=== PATIENT | female | born 1965 | race Caucasian/White ===

== ENCOUNTER 2020-06-01 09:41 | Outpatient (REF) | payer MEDICARE, MEDICAID, SELFPAY ==
[2020-06-01 10:51] LABS: MANUAL DIFF FLAG NO
[2020-06-01 11:00] LABS: Eosinophils Absolute Auto 0.2 X10*3/uL (0.0-0.4); Eosinophils Percent Auto 5.2 % (0-4); Hematocrit 40.1 % (37-47); Hemoglobin 13.8 g/dl (12.0-16.0); Imm Gran Abs Auto 0.01 X10*3/uL (0.00-0.03); Imm Gran Pct Auto 0.3 % (0.0-0.4); Lymphocytes Absolute Auto 1.6 X10*3/uL (1.2-4.9); Lymphocytes Percent Auto 40.6 % (20-40); Mean Corpuscular HGB Conc 34.4 g/dl (31.0-35.0); Mean Corpuscular Hemoglobin 32.2 pg (27.0-33.0); Mean Corpuscular Volume 93.5 fL (80-98); Mean Platelet Volume 9.3 fL (9.4-12.3); Monocytes Absolute Auto 0.5 X10*3/uL (0.1-1.2); Monocytes Percent Auto 11.6 % (2-11); Neutrophils Absolute Auto 1.6 X10*3/uL (2.0-8.3); Neutrophils Percent Auto 41.3 % (45-73); Platelet Count 254 X10*3/uL (160-400); Red Blood Count 4.29 X10*6/uL (4.20-5.50); Red Cell Distribution Width 11.6 % (11.0-16.0); White Blood Count 3.9 X10*3/uL (4.8-10.8)
[2020-06-01 11:37] LABS: Alanine Aminotransferase 39 U/L (0-31); Anion Gap 12 (12-20); Aspartate Amino Transferase 23 U/L (5-31); Bilirubin Total 0.5 mg/dL (0.0-1.0); Blood Urea Nitrogen 17 mg/dL (9-16); Calcium 9.2 mg/dL (8.4-10.2); Carbon Dioxide 27 mmol/L (22-29); Chloride 104 mmol/L (96-108); Estimated Glomerular Filt Rate > 60; Glucose Random 98 mg/dL (60-115); Potassium 4.2 mmol/L (3.3-5.1); Sodium 139 mmol/L (135-145); Total Protein 7.3 g/dL (6.5-8.0)
[2020-06-01 11:38] LABS: Albumin Level 4.3 g/dL (3.5-5.0); Alkaline Phosphatase 80 U/L (39-117); Cholesterol 205 mg/dL; HDL Cholesterol 51 mg/dL; LDL Cholesterol Calculated 133 mg/dl; Triglycerides 108 mg/dL
== END 2020-06-01 09:42 | disposition home or self-care (01) ==
LOC: HO.LAB 09:41
PROVIDERS: PCP Internal Medicine; Visit Provider Internal Medicine
DX: R10.13 Epigastric pain (principal); E03.8 Other specified hypothyroidism; E78.00 Pure hypercholesterolemia, unspecified; H81.12 Benign paroxysmal vertigo, left ear
CPT/HCPCS: 36415; 80053; 80061; 84443; 85025

== ENCOUNTER 2020-08-19 08:16 | Outpatient (REF) | payer MEDICARE, MEDICAID, SELFPAY ==
--- NOTE | ~2020-08-19 | MM_ITS ---
EXAMINATION: MM SCREENING DIGITAL BREAST TOMOSYNTHESIS, BILATERAL CLINICAL INFORMATION: Screening. Asymptomatic. The lifetime risk of breast cancer based on the Tyrer-Cuzick Model is 8%. COMPARISON: Mammography: 10/14/2018, 09/24/2017, 08/07/2016 TECHNIQUE: Digital breast tomosynthesis is performed in both the craniocaudal and mediolateral oblique views along with computer-aided detection (CAD). Synthesized 2D images are generated from the tomosynthesis. FINDINGS: There are scattered areas of fibroglandular density (ACR BI-RADS breast composition Category b). There are no significant masses, abnormal calcifications, or other abnormalities. Background stromal densities are stable. No significant changes. MM/MM tomosynthesis screening BI IMPRESSION: No mammographic evidence of malignancy. ASSESSMENT: BI-RADS 1: Negative RECOMMENDATION: Routine annual mammography screening. This patient's information was entered into a reminder system with a target due date for their next mammogram.
== END 2020-08-19 08:17 | disposition home or self-care (01) ==
LOC: HO.MAMMO 08:16
PROVIDERS: PCP Internal Medicine; Visit Provider Internal Medicine
DX: Z12.31 Encounter for screening mammogram for malignant neoplasm of breast (principal)
CPT/HCPCS: 77063; 77067

== ENCOUNTER 2021-07-03 11:21 | Outpatient (REF) | payer MEDICARE, MEDICAID, SELFPAY ==
[2021-07-03 11:40] LABS: MANUAL DIFF FLAG NO
[2021-07-03 12:01] LABS: Basophils Percent Auto 0.8 % (0-2); Eosinophils Absolute Auto 0.2 X10*3/uL (0.0-0.4); Eosinophils Percent Auto 4.1 % (0-4); Hematocrit 43.2 % (37.0-47.0); Hemoglobin 14.4 g/dl (12.0-16.0); Imm Gran Abs Auto 0.01 X10*3/uL (0.00-0.03); Imm Gran Pct Auto 0.3 % (0.0-0.4); Lymphocytes Absolute Auto 1.6 X10*3/uL (1.2-4.9); Mean Corpuscular HGB Conc 33.3 g/dl (31.0-35.0); Mean Corpuscular Hemoglobin 32.1 pg (27.0-33.0); Mean Corpuscular Volume 96.4 fL (80.0-98.0); Mean Platelet Volume 9.1 fL (9.4-12.3); Monocytes Absolute Auto 0.4 X10*3/uL (0.1-1.2); Monocytes Percent Auto 11.1 % (2-11); Neutrophils Absolute Auto 1.6 x10*3/uL (2.0-8.3); Neutrophils Percent Auto 41.7 % (45-73); Platelet Count 222 X10*3/uL (160-400); Red Blood Count 4.48 X10*6/uL (4.20-5.50); Red Cell Distribution Width 11.9 % (11.0-16.0); White Blood Count 3.9 X10*3/uL (4.8-10.8)
[2021-07-03 12:33] LABS: Alanine Aminotransferase 38 U/L (0-31); Albumin Level 4.4 g/dL (3.5-5.0); Alkaline Phosphatase 82 U/L (39-117); Anion Gap 14 (12-20); Aspartate Amino Transferase 25 U/L (5-31); Bilirubin Total 0.7 mg/dL (0.0-1.0); Blood Urea Nitrogen 16 mg/dL (9-16); Calcium 10.4 mg/dL (8.4-10.2); Carbon Dioxide 25 mmol/L (22-29); Chloride 104 mmol/L (96-108); Cholesterol 214 mg/dL; Estimated Glomerular Filt Rate 56; Glucose Random 100 mg/dL (60-115); HDL Cholesterol 55 mg/dL; LDL Cholesterol Calculated 139 mg/dl; Potassium 4.5 mmol/L (3.3-5.1); Sodium 138 mmol/L (135-145); Total Protein 7.7 g/dL (6.5-8.0); Triglycerides 104 mg/dL
[2021-07-03 12:55] LABS: Thyroid Stimulating Hormone 2.44 uIU/mL (0.32-4.0)
== END 2021-07-03 11:22 | disposition home or self-care (01) ==
LOC: HO.LAB 11:21
PROVIDERS: PCP Internal Medicine; Visit Provider Internal Medicine
DX: E78.00 Pure hypercholesterolemia, unspecified (principal); J45.909 Unspecified asthma, uncomplicated; R00.2 Palpitations; R74.01 Elevation of levels of liver transaminase levels
CPT/HCPCS: 36415; 80053; 80061; 84443; 85025

== ENCOUNTER 2021-07-25 12:46 | Outpatient (REF) | payer MEDICARE, SELFPAY ==
[2021-07-25 13:51] LABS: Calcium 9.6 mg/dL (8.4-10.2); Phosphorus 3.7 mg/dL (2.7-4.5)
[2021-07-25 14:13] LABS: Vitamin D 25-OH Total 44.3 ng/mL (>30)
[2021-07-25 14:36] LABS: Folate 15.4 ng/mL (> or = 4.0); Vitamin B12 759 pg/mL (200-900)
[2021-07-26 05:03] LABS: HBc Num1 0.07 S/CO (0.00-0.79); Hepatitis B Core Antibody Nonreactive (Nonreactive); ~Hepatitis B Surface Antibody NONREACTIVE (Nonreactive)
[2021-07-26 05:11] LABS: Hepatitis B Surface Antigen Negative (Negative); ~Hepatitis C Antibody Nonreactive (Nonreactive)
[2021-07-26 11:06] LABS: Calcium (PTHI) 9.3 mg/dL (8.6-10.4); PTHI 45 pg/mL (16-77)
[2021-07-27 07:37] LABS: HBsAGNum1 0.16 S/CO (0.00-0.99); ~HepC Num1 0.75 S/CO (0.00-0.79)
[2021-07-27 07:44] LABS: ~Hepatitis A Antibody IgM Nonreactive (Nonreactive)
== END 2021-07-25 12:47 | disposition home or self-care (01) ==
LOC: HO.LAB 12:46
PROVIDERS: PCP Internal Medicine; Visit Provider Internal Medicine
DX: E78.00 Pure hypercholesterolemia, unspecified (principal); E83.52 Hypercalcemia; G62.9 Polyneuropathy, unspecified; R74.01 Elevation of levels of liver transaminase levels
CPT/HCPCS: 36415; 82306; 82310; 82607; 82746; 83970; 84100; 86704; 86706; 86709; 86803; 87340

== ENCOUNTER 2022-03-05 14:18 | Outpatient (REF) | payer MEDICARE, SELFPAY ==
--- NOTE | ~2022-03-05 | MR_ITS ---
EXAMINATION: MR LUMBAR SPINE WITHOUT CONTRAST CLINICAL INFORMATION: Right lower extremity radiculopathy. COMPARISON: None TECHNIQUE: Multiplanar, multisequence imaging was obtained. FINDINGS: VERTEBRAL BODIES AND PARASPINAL STRUCTURES: There are chronic fatty marrow degenerative endplate changes and moderate disc space narrowing with mild retrosubluxation at the L5-S1 level. Mild anterolisthesis noted at the L4-L5 level with edema in the right pedicles and bilateral posterior elements, presumably reactive in etiology. Endplate Schmorl's nodes and [id number]-[id number] disc space narrowing evident at the L1-L2 level. No compression fractures are seen. The paraspinal soft tissues appear normal. The imaged bony pelvis is unremarkable. CONUS MEDULLARIS AND CAUDA EQUINE: The distal cord, conus tip, and cauda equina nerve roots are normal. SPINAL LEVELS: L1-L2: Retrosubluxation and central disc protrusion with an underlying annular tear distorting the ventral thecal sac. Mild central canal stenosis. Patent foramina. L2-L3: Mild facet arthropathy. No disc pathology, central canal stenosis, or foraminal narrowing. L3-L4: Mild loss of disc height and diffuse disc bulge with [id number] facet arthrosis. No central canal stenosis. Mild left foraminal narrowing. Right foraminal disc protrusion compresses the exiting right L3 nerve root with moderate to severe encroachment. L4-L5: Mild anterolisthesis and severe facet arthropathy. No central canal stenosis. Moderate left foraminal narrowing. L5-S1: Retrosubluxation and severe disc space narrowing with a diffuse disc bulge and facet arthropathy. No central canal stenosis. Right subarticular zone focal disc protrusion impresses upon the right S1 nerve root. Osseous spurring results in severe bilateral foraminal encroachment and distortion of both L5 nerve roots. MR/MR lumbar spine wo con IMPRESSION: 1. Right foraminal disc protrusion at the L3-L4 level compressing the right L3 nerve root with [id number]-[id number] encroachment. 2. Mild anterolisthesis and severe facet arthropathy at the L4-L5 level with moderate left foraminal narrowing. Reactive edema in the posterior elements and pedicles, more so on the right side. 3. Severe degenerative disc disease and retrosubluxation at the L5-S1 level with a focal right subarticular zone disc protrusion impressing upon the right S1 nerve root. Severe bilateral foraminal narrowing with distortion of both L5 nerve roots.
== END 2022-03-05 14:19 | disposition home or self-care (01) ==
LOC: HO.MRI 14:18
PROVIDERS: Visit Provider Internal Medicine
DX: M54.16 Radiculopathy, lumbar region (principal)
CPT/HCPCS: 72148

== ENCOUNTER 2022-10-17 10:24 | Emergency (ER) | payer MEDICARE, SELFPAY ==
[2022-10-17 10:38] VITALS: BP 132/70; BP 142/88; PULSE 66; PULSE 78; RESP 18; TEMP 36.7; O2SAT 97; O2SAT 99; BMI 26.4
--- NOTE | 2022-10-17 10:39 | ED.CHESTPAIN ---
HPI - Chest Pain General Chief Complaint: Chest Pain Stated Complaint: chest and R arm pain from urgent care History of Present Illness HPI narrative: Patient is 57 years old presents today with having chest pain. The chest pain is over the mid chest area. There is some pain in the right arm as well. It goes to the neck. Patient denies any diaphoresis. Symptom has been ongoing since she woke up at 07:30. Not associated with shortness of breath. No diaphoresis. Patient from home. No history of diabetes, hypertension, mi. no history of recreational drug use. No smoking no family history of coronary artery disease. Not made worse with any specific movements. Related Data Allergies Allergy/AdvReac Type Severity Reaction Status Date / Time nut - unspecified [nut] Allergy Mild RASH/ITCHIN Verified 10/17/22 10:37 G FRUIT Allergy Mild RASH/ITCH/THROAT Uncoded 12/30/19 15:37 CLOSES apples, pears, bryson, Allergy Unknown Itching Uncoded 10/17/22 10:37 peanut, Review of Systems Review of Systems: Is positive right-sided chest pain Yes all other systems are reviewed and are negative [facility] Past Medical History Attestation statement: The following information was validated with the patient. Social History Social History Alcohol intake: current Alcohol intake frequency: holidays/special occasions only Smoked in Last 30 Days: No Use of substances other than those prescribed or required for medical reasons: No Advance Directives: No Advance Directives Information Provided: Yes Patient : No Physical Exam Vital Signs: Vital Signs: Last Vital Signs Temp 98.0 F 10/17/22 13:22 Pulse 70 10/17/22 13:22 Resp 16 10/17/22 13:22 BP 130/81 10/17/22 13:22 Pulse Ox 94 10/17/22 13:22 O2 Del Method Room Air 10/17/22 13:22 BMI result Body Mass Index 26.4 Appearance: Alert. Oriented X3. No acute distress. Eyes: Pupils equal, round and reactive to light. ENT: Pharynx normal. Neck: Normal inspection. Neck supple. No lymph nodes noted. No crepitus CVS: Normal heart rate and rhythm. Pulses normal. Normal S1 and S2 Respiratory: No respiratory distress. Breath sounds normal. No Wheezing. No rales Abdomen: Soft and nontender. No rigidity. No distention. good BS x4 Skin: Skin warm and dry. Normal skin color. Normal skin turgor. Extremities: No lower extremity edema. Neurovascular intact to all extremities. No Lacerations. No Rash Neuro: Oriented X 3. No motor deficit. No sensory deficit. Moving all extermities. No slurred speech Medical Decision Making Medical Decision Making [facility] Narrative: Patient's chest pain atypical. D-dimer was negative. In the setting of low risk unlikely to be PE. Patient's chest x-ray showed no evidence of pneumonia pneumothorax. Patient complaining of some headache on the side. Sed rate are negative. No evidence for temporal arteritis. My interpretation of patient's EKG showed a sinus rhythm heart rate is 70 RI QRS QT within normal limits is no acute ST segment elevation. History not consistent. Negative EKG negative troponin x2 set makes ACS unlikely. Will still have patient follow-up on an outpatient basis. Differential Diagnosis Differential Diagnoses: The differential diagnosis associated with the presentation includes CAD, pneumonia, pneumothorax, temporal arteritis, migraine Lab Data [facility] Lab Attestation statement: I reviewed the patient's lab results. 10/17/22 11:00 10/17/22 11:00 Labs: Lab Results 10/17/22 10/17/22 10/17/22 Range/Units 11:00 11:00 11:00 WBC 4.4 L (4.8-10.8) X10*3/uL RBC 4.39 (4.20-5.50) X10*6/uL Hgb 14.2 (12.0-16.0) g/dl Hct 41.3 (37.0-47.0) % MCV 94.1 (80.0-98.0) fL MCH 32.3 (27.0-33.0) pg MCHC 34.4 (31.0-35.0) g/dl RDW 12.0 (11.0-16.0) % Plt Count 219 (160-400) X10*3/uL MPV 8.7 L (9.4-12.3) fL Immature Gran % (Auto) 0.2 (0.0-0.4) % Neut % (Auto) 47.6 (45-73) % Lymph % (Auto) 37.5 (20-40) % Mellette % (Auto) 10.5 (2-11) % Eos % (Auto) 3.7 (0-4) % Baso % (Auto) 0.5 (0-2) % Lymph # (Auto) 1.6 (1.2-4.9) X10*3/uL Mellette # (Auto) 0.5 (0.1-1.2) X10*3/uL Eos # (Auto) 0.2 (0.0-0.4) X10*3/uL Baso # (Auto) 0.0 (0.0-0.2) X10*3/uL Abs Immat Gran (auto) 0.01 (0.00-0.03) X10*3/uL Absolute Neuts (auto) 2.1 (2.0-8.3) x10*3/uL Absolute Nucleated RBC 0.000 (0.0-0.012) X10*3/uL Nucleated RBC % (auto) 0.0 (0.0-0.2) /100WBC ESR 8 (0-20) MM/HR D-Dimer High Sensitivty < 150 NG/ML Sodium (135-145) mmol/L Potassium (3.3-5.1) mmol/L Chloride (96-108) mmol/L Carbon Dioxide (22-29) mmol/L Anion Gap (12-20) BUN (9-16) mg/dL Creatinine (0.5-1.4) mg/dL Estim Creat Clear Calc Estimated GFR Random Glucose (60-115) mg/dL Calcium (8.4-10.2) mg/dL Total Bilirubin (0.0-1.0) mg/dL Direct Bilirubin (0.0-0.5) mg/dL AST (5-31) U/L ALT (0-31) U/L Alkaline Phosphatase (39-117) U/L Troponin I High Sens (<3.5-17.0) ng/L C-Reactive Protein (< or = 0.50) mg/dL Total Protein (6.5-8.0) g/dL Albumin (3.5-5.0) g/dL Lipase (8-78) U/L 10/17/22 10/17/22 10/17/22 Range/Units 11:00 11:00 13:08 WBC (4.8-10.8) X10*3/uL RBC (4.20-5.50) X10*6/uL Hgb (12.0-16.0) g/dl Hct (37.0-47.0) % MCV (80.0-98.0) fL MCH (27.0-33.0) pg MCHC (31.0-35.0) g/dl RDW (11.0-16.0) % Plt Count (160-400) X10*3/uL MPV (9.4-12.3) fL Immature Gran % (Auto) (0.0-0.4) % Neut % (Auto) (45-73) % Lymph % (Auto) (20-40) % Mellette % (Auto) (2-11) % Eos % (Auto) (0-4) % Baso % (Auto) (0-2) % Lymph # (Auto) (1.2-4.9) X10*3/uL Mellette # (Auto) (0.1-1.2) X10*3/uL Eos # (Auto) (0.0-0.4) X10*3/uL Baso # (Auto) (0.0-0.2) X10*3/uL Abs Immat Gran (auto) (0.00-0.03) X10*3/uL Absolute Neuts (auto) (2.0-8.3) x10*3/uL Absolute Nucleated RBC (0.0-0.012) X10*3/uL Nucleated RBC % (auto) (0.0-0.2) /100WBC ESR (0-20) MM/HR D-Dimer High Sensitivty NG/ML Sodium 138 (135-145) mmol/L Potassium 4.7 (3.3-5.1) mmol/L Chloride 106 (96-108) mmol/L Carbon Dioxide 25 (22-29) mmol/L Anion Gap 12 (12-20) BUN 18 H (9-16) mg/dL Creatinine 0.80 (0.5-1.4) mg/dL Estim Creat Clear Calc 62.6 Estimated GFR > 60 Random Glucose 106 (60-115) mg/dL Calcium 9.6 (8.4-10.2) mg/dL Total Bilirubin 0.5 (0.0-1.0) mg/dL Direct Bilirubin 0.1 (0.0-0.5) mg/dL AST 25 (5-31) U/L ALT 32 H (0-31) U/L Alkaline Phosphatase 79 (39-117) U/L Troponin I High Sens < 2.7 < 2.7 (<3.5-17.0) ng/L C-Reactive Protein 0.15 (< or = 0.50) mg/dL Total Protein 7.7 (6.5-8.0) g/dL Albumin 4.1 (3.5-5.0) g/dL Lipase 21 (8-78) U/L Independent Interpretation I performed an independent interpretation of an: EKG and Plain X-Ray Interpretation: Interpretation of patient's EKG showed a sinus rhythm heart rate is 70 RI QRS QT within normal limits is no acute ST noted Chest x-ray was negative Discharge Plan Discharge Clinical Impression: Chest pain Patient Disposition: Home, Self-Care Instructions: Chest Pain (DC) Referrals: Julieth Blanco MD [Primary Care Provider] - 10/21/22
--- NOTE | 2022-10-17 10:52 | PC.NURSE ---
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
[2022-10-17 13:22] VITALS: BP 130/81; PULSE 70; RESP 16; TEMP 36.7; O2SAT 94
--- NOTE | 2022-10-17 13:25 | PC.NURSE ---
a&ox3, vss, nsr on the laboratory monitor, pt states no change in pain level - still stating that the level is a 6/10, repeat troponin level sent to the lab by tech awaiting results, pending discharge based on results, call pompa placed within reach, will continue to monitor.
[2022-10-17 16:02] VITALS: BP 132/72; PULSE 74; RESP 14; O2SAT 98
== END 2022-10-17 16:13 | disposition home or self-care (01) ==
PROVIDERS: Emergency Provider Emergency Medicine Emergency Medical Services; PCP Internal Medicine
DX: R07.9 Chest pain, unspecified (principal)
CPT/HCPCS: 36415; 71045; 80048; 80076; 83690; 84484; 85025; 85379; 85652; 86140; 93005; 99283; 99285

== ENCOUNTER 2023-02-03 11:38 | Outpatient (REF) | payer MEDICARE, SELFPAY ==
[2023-02-03 11:46] LABS: MANUAL DIFF FLAG NO
[2023-02-03 12:11] LABS: Basophils Percent Auto 0.9 % (0-2); Eosinophils Absolute Auto 0.2 X10*3/uL (0.0-0.4); Hematocrit 41.3 % (37.0-47.0); Hemoglobin 14.1 g/dl (12.0-16.0); Imm Gran Abs Auto 0.01 X10*3/uL (0.00-0.03); Imm Gran Pct Auto 0.2 % (0.0-0.4); Lymphocytes Absolute Auto 1.9 X10*3/uL (1.2-4.9); Lymphocytes Percent Auto 44.4 % (20-40); Mean Corpuscular HGB Conc 34.1 g/dl (31.0-35.0); Mean Corpuscular Hemoglobin 32.8 pg (27.0-33.0); Monocytes Absolute Auto 0.4 X10*3/uL (0.1-1.2); Monocytes Percent Auto 9.6 % (2-11); Neutrophils Absolute Auto 1.8 x10*3/uL (2.0-8.3); Neutrophils Percent Auto 40.9 % (45-73); Platelet Count 235 X10*3/uL (160-400); Red Cell Distribution Width 11.8 % (11.0-16.0); White Blood Count 4.3 X10*3/uL (4.8-10.8)
[2023-02-03 12:40] LABS: Alanine Aminotransferase 25 U/L (0-31); Albumin Level 4.3 g/dL (3.5-5.0); Alkaline Phosphatase 96 U/L (39-117); Anion Gap 11 (12-20); Aspartate Amino Transferase 24 U/L (5-31); Bilirubin Total 0.4 mg/dL (0.0-1.0); Blood Urea Nitrogen 14 mg/dL (9-16); Calcium 10.1 mg/dL (8.4-10.2); Carbon Dioxide 28 mmol/L (22-29); Chloride 106 mmol/L (96-108); Cholesterol 218 mg/dL (<200); Estimated Glomerular Filt Rate > 60; Glucose Random 95 mg/dL (60-115); HDL Cholesterol 68 mg/dL (>40); LDL Cholesterol Calculated 124 mg/dL (<100); Magnesium 1.9 mg/dL (1.6-2.6); Sodium 141 mmol/L (135-145); Total Protein 7.9 g/dL (6.5-8.0); Triglycerides 132 mg/dL (<150)
== END 2023-02-03 11:39 | disposition home or self-care (01) ==
LOC: HO.LAB 11:38
PROVIDERS: PCP Internal Medicine; Visit Provider Internal Medicine
DX: Z00.00 Encounter for general adult medical examination without abnormal findings (principal); I10 Essential (primary) hypertension; J30.2 Other seasonal allergic rhinitis
CPT/HCPCS: 36415; 80053; 80061; 83735; 85025

== ENCOUNTER 2023-10-17 10:20 | Outpatient (AMB) | payer MEDICARE, SELFPAY ==
[2023-10-17 10:33] VITALS: BP 130/72; PULSE 76; TEMP 36.3; O2SAT 97; BMI 26.6
--- NOTE | 2023-10-17 10:33 | AM.OFFWIN_ITS ---
Intake Vital Signs 10/17/23 10:33 Height 5 ft Weight 136 lb 4 oz BMI 26.6 BP 130/72 Blood Pressure Location Rt brachial Position Sitting Pulse 76 Pulse Source Pulse Oximeter Temp 97.3 F Temp Source Temporal Artery Scan Pulse Oximetry (%) 97 Oxygen Delivery Method Room Air Intake Visit Reasons: EP lips/legs are numb/body feeling paralyzed Intake Note: pt is here for lips and legs feeling numb and heavy to walk, patient stated she had a jaciel horse on her leg and ever since then it feels off Patient Tobacco Use Status: Never used Tobacco Allergies nut - unspecified [nut] Allergy (Mild, Verified 10/17/23 10:35) RASH/ITCHING FRUIT Allergy (Mild, Uncoded 12/30/19 15:37) RASH/ITCH/THROAT CLOSES apples, pears, bryson, peanut, Allergy (Unknown, Uncoded 10/17/22 10:37) Itching Do you need a note to return to daycare/school/sports/work: No HPI EP lips/legs are numb/body feeling paralyzed HPI Details This is a 58-year-old female patient who presents to the walk-in today with concern for muscle cramping and numbness/tingling sensation. She states that on Friday, 2 days ago, she developed tingling and numbness around her mouth, in addition to severe cramping in her lower legs, lower arms, and hands. She felt the spasms were so severe, she had difficulty walking. She states that these ultimately resolved about an hour later, however she continues to have soreness in affected areas. 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 She reports mild headache yesterday. She spent yesterday resting at home and does feel somewhat improved. She denies any fever, chills, shortness of breath, chest pain, or recent illnesses. Has been eating and drinking well. No GI symptoms. She has been diagnosed with restless leg syndrome previously and takes Gabape ntin and Magnesium for this. She is travelling outside the country next week and wanted to be evaluated prior to leaving. [facility] Social History Alcohol intake: current Alcohol intake frequency: holidays/special occasions only Patient Tobacco Use Status: Never used Tobacco Review of Systems Const All systems reviewed & are unremarkable except as noted in HPI and below Physical Exam Vital Signs: Last Vital Signs Temp 97.3 F 10/17/23 10:33 Pulse 76 10/17/23 10:33 BP 130/72 10/17/23 10:33 Pulse Ox 97 10/17/23 10:33 Oxygen Delivery Method Room Air 10/17/23 10:33 BMI result Body Mass Index 26.6 Const General: cooperative, healthy appearing, comfortable and no acute distress Orientation/consciousness: patient oriented x3 HEENT Head: Yes normal to inspection and Yes normocephalic Ears: hearing grossly normal bilaterally General nose exam: Normal external nose present Throat: Yes posterior oropharynx normal Eyes Pupils: Equal, round and reactive pupils present EOM: EOMs intact bilaterally Direct Ophthalmoscopy: normal light reflex and no photophobia Neck Neck: Yes no lymphadenopathy Resp Effort & Inspection: normal respiratory effort Auscultation: clear to auscultation bilaterally Cardio Jugular venous distension: no JVD Palpation: normal PMI Rate: regular rate Rhythm: regular rhythm Skin General skin exam: no rashes or lesions noted Neuro General: patient oriented x3, gait normal (mildly antalgic, sore lower extremities), tone normal, moves all extremities, no focal motor deficits and deep tendon reflexes 2+ bilaterally Cranial nerves: Yes Equal, round and reactive pupils present, Yes Normal accommodation reflex present, Yes Bilaterally intact EOM present, Yes Normal facial strength present and Yes Midline tongue present Cognition (Neuro): normal cognition Motor exam (neuro): 5/5 motor strength present throughout, Pronator motor function not present and no tremor noted Extrem Other: normal strength testing bilateral upper and lower extremities, 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 Patient has some soreness of LE musculature to palpation without any swelling, redness, warmth, or spasms noted. Normal peripheral pulses and cap refill. General: Yes capillary refill normal and Yes no clubbing, cyanosis or edema Psych Appearance: grossly normal Mental Status: mental status grossly normal Speech and movement: Normal speech and movement present Assessment & Plan Assessment & Plan (1) Muscle spasm of both lower legs: Code(s): M62.838 - Other muscle spasm Plan: Patient had episode of paresthesias in addition to muscle cramping/spasming. She was working outside and it is possible she was dehydrated and had some electrolyte imbalance. We discussed the limitations of workup from a walk-in clinic standpoint, however she is certain she does not wish to go to the ED for evaluation. Her neuro assessment is normal, VS are normal, and she does not seem to have any muscle cramping or paresthesias at this time, however she still has muscle soreness. I will obtain some labs CBC, BMP, and Mag level today and f/u with patient once these are available to review. She will also f/u with her PCP within the next week. We discussed that if a similar event/symptoms occur, she should go to the ED for evaluation. We discussed adequate hydration, healthy food/vitamin intake. She verbalizes understanding and agrees to plan. Orders: Orders Complete Blood Count Auto Diff Today M62.838 - Other muscle spasm Basic Metabolic Panel Today M62.838 - Other muscle spasm Magnesium Today M62.838 - Other muscle spasm Coding Level of Care Code Est Pt Level 4 (98455) Diagnoses Muscle spasm of both lower legs M62.838
== END 2023-10-17 11:44 | disposition home or self-care (01) ==
PROVIDERS: PCP Internal Medicine; Visit Provider Nurse Practitioner Family
DX: M62.838 Other muscle spasm (principal)
CPT/HCPCS: 99214

== ENCOUNTER 2023-10-17 11:27 | Outpatient (REF) | payer MEDICARE, SELFPAY ==
[2023-10-17 13:19] LABS: MANUAL DIFF FLAG NO
[2023-10-17 13:39] LABS: Anion Gap 13 (12-20); Blood Urea Nitrogen 27 mg/dL (9-16); Calcium 10.3 mg/dL (8.4-10.2); Carbon Dioxide 24 mmol/L (22-29); Chloride 106 mmol/L (96-108); Estimated Glomerular Filt Rate > 60; Glucose Random 99 mg/dL (60-115); Magnesium 2.3 mg/dL (1.6-2.6); Potassium 4.3 mmol/L (3.3-5.1); Sodium 139 mmol/L (135-145)
[2023-10-17 13:46] LABS: Basophils Percent Auto 0.6 % (0-2); Eosinophils Absolute Auto 0.2 X10*3/uL (0.0-0.4); Eosinophils Percent Auto 3.3 % (0-4); Hematocrit 43.1 % (37.0-47.0); Imm Gran Abs Auto 0.01 X10*3/uL (0.00-0.03); Imm Gran Pct Auto 0.2 % (0.0-0.4); Lymphocytes Absolute Auto 1.7 X10*3/uL (1.2-4.9); Lymphocytes Percent Auto 35.5 % (20-40); Mean Corpuscular HGB Conc 34.8 g/dl (31.0-35.0); Mean Corpuscular Volume 94.9 fL (80.0-98.0); Mean Platelet Volume 9.4 fL (9.4-12.3); Monocytes Absolute Auto 0.6 X10*3/uL (0.1-1.2); Monocytes Percent Auto 11.9 % (2-11); Neutrophils Absolute Auto 2.3 x10*3/uL (2.0-8.3); Neutrophils Percent Auto 48.5 % (45-73); Platelet Count 257 X10*3/uL (160-400); Red Blood Count 4.54 X10*6/uL (4.20-5.50); Red Cell Distribution Width 12.2 % (11.0-16.0); White Blood Count 4.8 X10*3/uL (4.8-10.8)
== END 2023-10-17 11:28 | disposition home or self-care (01) ==
LOC: HO.HMGCLDS 11:27
PROVIDERS: PCP Internal Medicine; Visit Provider Nurse Practitioner Family
DX: M62.838 Other muscle spasm (principal); Z20.2 Contact with and (suspected) exposure to infections with a predominantly sexual mode of transmission
CPT/HCPCS: 36415; 80048; 83735; 85025

== ENCOUNTER 2024-03-23 05:41 | Outpatient (REF) | payer MEDICARE, SELFPAY | END 2024-03-23 05:42 | disposition home or self-care (01) | LOC: HO.NEURO 05:41 | PROVIDERS: PCP Internal Medicine; Visit Provider Internal Medicine | DX: Z13.89 Encounter for screening for other disorder (principal) ==

== ENCOUNTER 2024-05-28 12:49 | Outpatient (REF) | payer MEDICARE, SELFPAY ==
--- NOTE | 2024-05-28 | EMG_ITS ---
Chief complaint: History of bilateral carpal tunnel surgery more than 10 years ago. Since surgery, always had left 3rd digit numbness. Now having right wrist pain and left palm pain but denies numbness. Reason for referral: Evaluate for Carpal Tunnel Syndrome Referred by: Dr. Blanco Procedure done: Bilateral upper extremities NCS/EMG Precautions and/or limitations: None The limb temperature was monitored continuously and remained between 32-36 degrees C during the performance of the NCS. Nerve Conduction Studies Anti Sensory Summary Table ?Stim Site NR Onset (ms) Norm Onset (ms) Peak (ms) Norm Peak (ms) O-P Amp (?V) Norm O-P Amp Site1 Site2 Delta-0 (ms) Dist (cm) Jarrod (m/s) Norm Jarrod (m/s) Left Median Anti Sensory (2nd Digit) Wrist ? 2.8 3.6 <3.6 9.5 >10 Wrist 2nd Digit 2.8 14.0 50 Right Median Anti Sensory (2nd Digit) Wrist ? 3.0 3.8 <3.6 24.9 >10 Wrist 2nd Digit 3.0 14.0 47 Right Radial Anti Sensory (Thumb) Forearm ? 1.7 2.2 <3.1 10.6 Forearm Thumb 1.7 0.0 Left Ulnar Anti Sensory (5th Digit) Wrist ? 2.2 3.1 <3.7 37.3 >15.0 Wrist 5th Digit 2.2 14.0 64 Right Ulnar Anti Sensory (5th Digit) Wrist ? 2.4 3.1 <3.7 14.5 >15.0 Wrist 5th Digit 2.4 14.0 58 Motor Summary Table ?Stim Site NR Onset (ms) Norm Onset (ms) O-P Amp (mV) Norm O-P Amp iAmp (mV) Amp (1st) (%) Site1 Site2 Delta-0 (ms) Dist (cm) Jarrod (m/s) Norm Jarrod (m/s) Left Median Motor (Abd Poll Brev) Wrist ? 4.8 <3.9 3.1 >4.5 3.6 100.0 Elbow Wrist 3.3 17.5 53 >45 Elbow ? 8.1 3.4 4.0 109.7 Right Median Motor (Abd Poll Brev) Wrist ? 4.1 <3.9 7.3 >4.5 8.7 100.0 Elbow Wrist 3.7 18.0 49 >45 Elbow ? 7.8 6.8 8.0 93.2 Left Ulnar Motor (Abd Dig Minimi) Wrist ? 2.8 <3.0 5.9 >5 7.4 100.0 B Elbow Wrist 2.8 17.0 61 >45 B Elbow ? 5.6 5.0 6.1 84.7 A Elbow B Elbow 1.7 10.0 59 >45 A Elbow ? 7.3 4.9 6.2 83.1 Right Ulnar Motor (Abd Dig Minimi) Wrist ? 2.8 <3.0 9.4 >5 11.2 100.0 B Elbow Wrist 2.5 16.5 66 >45 B Elbow ? 5.3 7.3 8.7 77.7 A Elbow B Elbow 1.4 10.0 71 >45 A Elbow ? 6.7 6.9 8.2 73.4 Comparison Summary Table ?Stim Site NR Peak (ms) Norm Peak (ms) P-T Amp (?V) Site1 Site2 Delta-P (ms) Norm Delta (ms) Left Median/Radial Dig I Comparison (Digit 1 - 10cm) Median ? 3.1 <2.9 23.2 Median Radial 0.5 Radial ? 2.6 <2.8 34.0 EMG ?Side Muscle Nerve Root Ins Act Fibs Psw Amp Dur Poly Recrt Int Pat Comment Right 1stDorInt Ulnar C8-T1 Nml Nml Nml Nml Nml 0 Nml Complete Right FlexCarRad Median C6-7 Nml Nml Nml Nml Nml 0 Nml Complete Right Biceps Musculocut C5-6 Nml Nml Nml Nml Nml 0 Nml Complete Right Triceps Radial C6-7-8 Nml Nml Nml Nml Nml 0 Nml Complete Right Deltoid Axillary C5-6 Nml Nml Nml Nml Nml 0 Nml Complete Left 1stDorInt Ulnar C8-T1 Nml Nml Nml Nml Nml 0 Nml Complete Left FlexCarRad Median C6-7 Nml Nml Nml Nml Nml 0 Nml Complete Left Biceps Musculocut C5-6 Nml Nml Nml Nml Nml 0 Nml Complete Left Triceps Radial C6-7-8 Nml Nml Nml Nml Nml 0 Nml Complete Left Deltoid Axillary C5-6 Nml Nml Nml Nml Nml 0 Nml Complete FINDINGS: Right median motor nerve showed prolonged distal latency, normal amplitude and normal conduction velocity. Left median motor nerve showed prolonged distal latency, small amplitude and normal conduction velocity. Right median sensory nerve showed prolonged peak latency. Left median sensory nerve showed borderline peak latency but small amplitude. Interlatency difference between left median and radial sensory nerve was 0.5. All other nerves tested were within normal. Concentric needle EMG was performed in selected muscles of the upper extremity. Study did not reveal signs of electric abnormalities as shown in the table above. IMPRESSION: 1. This is an abnormal study. 2. There is electrodiagnostic evidence for bilateral moderate-severe median neuropathy at the wrist, consistent with carpal tunnel syndrome. 3. There is no electrodiagnostic evidence for ulnar neuropathy, brachial plexopathy, or cervical radiculopathy. Thank you for your kind referral. Dorothy Feldman MD, IBRAHIMA Board Certified, [place] [employer] and [employer] (ABPMR) Board Certified, [place] Board [employer] Electrodiagnostic [employer] (ABEM) CODIN [phone] x 2 MTDD
== END 2024-05-28 12:50 | disposition home or self-care (01) ==
LOC: HO.NEURO 12:49
PROVIDERS: PCP Internal Medicine; Visit Provider Internal Medicine
DX: G56.03 Carpal tunnel syndrome, bilateral upper limbs (principal)
CPT/HCPCS: 95886; 95911

== ENCOUNTER → 2024-05-28 13:00 | Outpatient (BNV) | payer MEDICARE, SELFPAY | PROVIDERS: PCP Internal Medicine; Visit Provider Physical Medicine & Rehabilitation | DX: G56.03 Carpal tunnel syndrome, bilateral upper limbs (principal) | CPT/HCPCS: 95886; 95911 ==

== ENCOUNTER 2024-06-23 11:56 | Outpatient (REF) | payer MEDICARE, SELFPAY | END 2024-06-23 11:57 | disposition home or self-care (01) | LOC: HO.MAMMO 11:56 | PROVIDERS: PCP Internal Medicine; Visit Provider Internal Medicine | DX: Z12.31 Encounter for screening mammogram for malignant neoplasm of breast (principal) | CPT/HCPCS: 77063; 77067 ==

== ENCOUNTER → 2024-06-23 12:15 | Outpatient (BNV) | payer MEDICARE, SELFPAY | PROVIDERS: PCP Internal Medicine; Visit Provider Internal Medicine | DX: Z12.31 Encounter for screening mammogram for malignant neoplasm of breast (principal) | CPT/HCPCS: 77063; 77067 ==

== ENCOUNTER → 2024-06-29 19:30 | Outpatient (REF) | payer MEDICARE, SELFPAY | LOC: HO.SL 19:30 | PROVIDERS: PCP Internal Medicine; Visit Provider Internal Medicine | DX: G47.33 Obstructive sleep apnea (adult) (pediatric) (principal) | CPT/HCPCS: 95810 ==

== ENCOUNTER → 2024-06-29 19:30 | Outpatient (BNV) | payer MEDICARE, SELFPAY | PROVIDERS: PCP Internal Medicine; Visit Provider Psychiatry & Neurology Neurology | DX: G47.33 Obstructive sleep apnea (adult) (pediatric) (principal) | CPT/HCPCS: 95810 ==

== ENCOUNTER 2024-07-02 12:56 | Outpatient (AMB) | payer MEDICARE, SELFPAY ==
[2024-07-02 13:06] VITALS: BMI 27.3
--- NOTE | 2024-07-02 13:06 | MHC.OFFVIS ---
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 Patient states this is exacerbated by lifting. Denies finger locking. Reports prior bilateral CTR about 15-20 years ago. Denies recent injuries to then hands. Patient states ever since her CTR surgery she's had a weird' sensation on her left middle finger. 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 Patient states this is exacerbated by lifting. Denies finger locking. Reports prior bilateral CTR about 15-20 years ago. Denies recent injuries to then hands. Patient states ever since her CTR surgery she's had a weird' sensation on her left middle finger. 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 Normal sensation of the tips of all digits of the right hand in the office today No thenar or intrinsic wasting. Good APB muscle firing and good finger cross. Vascular: Capillary refill brisk. ROM: Patient can make a fist and extend all their digits. Skin: No lacerations or abrasions noted. General: No ecchymosis. No erythema or evidence of infection. Results Reviewed Results Reviewed: IMPRESSION: 1. This is an abnormal study. 2. There is electrodiagnostic evidence for bilateral moderate-severe median neuropathy at the wrist, consistent with carpal tunnel syndrome. 3. There is no electrodiagnostic evidence for ulnar neuropathy, brachial plexopathy, or cervical radiculopathy. Thank you for your kind referral. Dorothy Feldman MD, IBRAHIMA Assessment & Plan Assessment & Plan (1) Bilateral carpal tunnel syndrome: Code(s): G56.03 - Carpal tunnel syndrome, bilateral upper limbs Category: Medical Plan 1. Carpal tunnel syndrome, left Status post carpal tunnel release ?many years ago? at [facility] Symptoms intermittent, daily, worse at night Symptoms constant but only in the middle finger due to previous nerve damage explained to patient at previous hand surgeon I educated the patient about the condition. I discussed both operative and nonoperative treatment options. The patient would like to proceed with surgery. \ The risks and benefits of operative treatment were discussed with the patient and the patient wishes to proceed with surgery. These risks include, but are not limited to, risk of damage to blood vessels, nerves, tendons, infection, recurrence, incomplete relief of preoperative symptoms, persistent pain, possible need for further surgery, and the risks associated with regional blocks and/or anesthesia. Plan is to take the patient to the operating room at some point in the next few weeks for the following procedures: 1. Left repeat carpal tunnel release under local All of the preoperative paperwork including the consent was discussed today. All of the patient's questions were answered in the clinic today. The patient understands that they will be in contact with our surgical technologist to discuss scheduling their procedure. Patient denies diabetes, blood thinners, asthma, heart issues, lung issues, kidney issues, or current smoking. 2. Carpal tunnel syndrome, right Status post carpal tunnel release ?many years ago? Patient would like to proceed with operative intervention of the left prior to any intervention on the right Patient was informed that if she is recovering well from left-sided surgery at postop visit, she can get signed up for right-sided surgery at that time Patient was amenable to this plan Coding Level of Care Code New Pt Level 4 (29298) Diagnoses Bilateral carpal tunnel syndrome G56.03
== END 2024-07-02 13:31 | disposition home or self-care (01) ==
LOC: HO.HOS 12:56
PROVIDERS: PCP Internal Medicine
DX: G56.03 Carpal tunnel syndrome, bilateral upper limbs (principal)
CPT/HCPCS: 99204

== ENCOUNTER → 2024-07-02 12:56 | Outpatient (BNVA) | payer MEDICARE, SELFPAY | PROVIDERS: PCP Internal Medicine | DX: G56.03 Carpal tunnel syndrome, bilateral upper limbs (principal) | CPT/HCPCS: 99202 ==

== ENCOUNTER 2024-07-22 10:19 | Day surgery (SDC) | payer MEDICARE, SELFPAY ==
--- NOTE | 2024-07-22 10:36 | W.PM.OPN ---
Operative Note Operative Note Date of Service: 07/22/24 Narrative: Preop diagnosis: 1. Recurrent left Carpal tunnel syndrome Postop diagnosis: same Procedure: 1. Repeat left Carpal tunnel release Surgeon: Omaira Hawk MD Maintenance Superintendent: Patel HARRIS Anesthesia: local block using 1% lidocaine with epinephrine Findings: Thickened transverse carpal ligament. EBL: Less than 5 mL Specimens: None Complications: None Disposition: Brought to recovery room in stable condition Plan: Follow-up for 10-14 days for wound check and suture removal Indications: The patient is 58 years old, with recurrent left carpal tunnel syndrome that has been unresponsive to nonoperative management. The risks and benefits of operative treatment including but not limited to risk of damage to blood vessels, nerves, tendons, infection, persistent pain, persistent symptoms, or possible need for additional surgery were discussed with the patient and the patient wishes to proceed with surgery. Procedure: Once consent was obtained a local block was performed using a combination of 1% lidocaine with epinephrine. The patient was then brought back to the operating suite and placed on the operative table in supine position. The left upper extremity was prepped and draped in a standard surgical fashion. Once assured that we had a good block, a 2.0 cm longitudinal incision was made centered over the carpal tunnel with a zigzag extension of the incision proximally about 2 cm. The incision was made through the skin to the subcutaneous tissues using a #15 blade. Dissection proximally was made down to the level of the volar forearm fascia. A longitudinal incision was made in the volar forearm fascia using a 15. Blade and tenotomy scissors under direct visualization. The median nerve was then identified, allowing it to be protected while incising through the scar tissue over the carpal tunnel. Scar tissue over the carpal tunnel was then incised longitudinally under direct visualization with a 15. Blade and tenotomy and iris scissors while protecting the median nerve. Once satisfied with our carpal tunnel release the wound was copiously irrigated with normal saline and hemostasis was obtained with a brief period of local pressure. The skin edges were reapproximated with some 5.0 nylon suture material and a sterile dressing was applied. The patient appears to have tolerated the procedure well and with no complications. All digits were well vascularized at the conclusion of the case.
[2024-07-22 10:48] VITALS: BMI 27.3
[2024-07-22 10:58] VITALS: BP 138/91; PULSE 67; RESP 16; TEMP 36.1; O2SAT 97
--- NOTE | 2024-07-22 11:10 | MHC.SHP ---
Pre-Procedural Eval Section A - 24 Hr Update-Section A only Date of Service: 07/22/24 The patient is an INPATIENT: No Changes since office visit: No Cold of Flu in the past 2 weeks, No New Medical Problems, No Changes in Medication and No Patient answered all questions The patient has been examined within 24 hours of the surgical procedure. The History & Physical has been completed within 30 days and I have reviewed it.: Yes Section B - Complete if H&P > 30 days Chief Complaint: Carpal tunnel syndrome, left upper limb Allergies: Allergies Allergy/AdvReac Type Severity Reaction Status Date / Time nut - unspecified [nut] Allergy Mild RASH/ITCHIN Verified 07/02/24 13:13 G FRUIT Allergy Mild RASH/ITCH/THROAT Uncoded 07/02/24 13:13 CLOSES apples, pears, bryson, Allergy Unknown Itching Uncoded 07/02/24 13:13 peanut, Plan Diagnosis/Plan: Unchanged I have reviewed the history and physical and performed a pertinent physical examination on my patient. No changes have occurred unless specified. Time Spent With Patient Time: Total time managing care of this patient today ____ minutes.
[2024-07-22 12:26] VITALS: BP 142/82; PULSE 74; RESP 18; O2SAT 97
== END 2024-07-22 12:45 | disposition home or self-care (01) ==
PROVIDERS: PCP Internal Medicine; Visit Provider Orthopaedic Surgery
PROC: (CPT 64721; principal; 2024-07-22 12:30)
DX: G56.02 Carpal tunnel syndrome, left upper limb (principal); R20.0 Anesthesia of skin; R20.2 Paresthesia of skin; M79.642 Pain in left hand; N20.0 Calculus of kidney; Z98.890 Other specified postprocedural states; Z91.018 Allergy to other foods
CPT/HCPCS: 64721; J0171; J2003

== ENCOUNTER → 2024-07-22 10:19 | Outpatient (BNV) | payer MEDICARE, SELFPAY | PROVIDERS: PCP Internal Medicine; Visit Provider Orthopaedic Surgery | DX: G56.02 Carpal tunnel syndrome, left upper limb (principal) | CPT/HCPCS: 64721 ==

== ENCOUNTER 2024-08-04 14:18 | Outpatient (AMB) | payer MEDICARE, SELFPAY ==
--- NOTE | 2024-08-04 14:19 | MHC.OFFVIS ---
Intake Visit Reasons: PO-Lt Repeat CTR 07/22/24 Intake Note: Danay is a 58 year old right hand dominant female who presents today for a post operative visit s/p repeat left carpal tunnel release DOS: 07/22/[address] Omaira Hawk. Patient reports she feels improvement in the left hand after her CTR. Denies numbness and tingling. Denies discharge. Allergies nut - unspecified [nut] Allergy (Mild, Verified 08/04/24 14:31) RASH/ITCHING FRUIT Allergy (Mild, Uncoded 08/04/24 14:31) RASH/ITCH/THROAT CLOSES apples, pears, bryson, peanut, Allergy (Unknown, Uncoded 08/04/24 14:31) Itching HPI HPI PO-Lt Repeat CTR 07/22/24: Details: Danay is a 58 year old right hand dominant female who presents today for a post operative visit s/p repeat left carpal tunnel release DOS: 07/22/[address] Omaira Hawk. Patient reports she feels improvement in the left hand after her CTR. Denies numbness and tingling. Denies discharge. The patient does report that she does have some pain around the incision site, but reports that this is improved [facility] Medical History (Updated 08/04/24 @ 14:31 by LEVY Prince) Bilateral carpal tunnel syndrome Kidney stones Carpal tunnel syndrome on left Surgical History (Updated 07/22/24 @ 10:53 by Mar Mcclure RN) Hx of tubal ligation H/O hemorrhoidectomy Hx of appendectomy H/O cystoscopy S/P nasal surgery Social History Alcohol intake: current Alcohol intake frequency: holidays/special occasions only Patient Tobacco Use Status: Never used Tobacco Current occupational status: employed 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 Neuro: Normal sensation of the tips of all digits of the left hand at this time Vascular: Cap refill brisk Pain: Mild tenderness to palpation noted about incision site on volar left wrist ROM: Patient is able to make a closed fist and extend all digits of the right hand fully Skin: Well approximated and well healing incision site noted on the volar left wrist No lacerations or abrasions. General: No ecchymosis, erythema, or evidence of infection. Psych: Appears grossly normal Affect normal Attitude cooperative Assessment & Plan Assessment & Plan (1) Bilateral carpal tunnel syndrome: Code(s): G56.03 - Carpal tunnel syndrome, bilateral upper limbs Category: Medical Plan 1. Status post left carpal tunnel release Complete symptom resolution since surgery Patient appears to be recovering well postoperatively Patient is educated about the typical recovery course At this time, patient was informed that she will require no acute follow-up with us, as she appears to be recovering very well, Patient was amenable to this plan 2. Right carpal tunnel syndrome Symptoms intermittent, daily, worse at night Patient would like to hold off on operative intervention at this time, stating she will be quite busy with work until December Due to this, patient was booked for follow-up appointment in October to discuss carpal tunnel release Patient was amenable to this plan Coding Level of Care Code Global (03808) Diagnoses Bilateral carpal tunnel syndrome G56.03
== END 2024-08-04 14:59 | disposition home or self-care (01) ==
LOC: HO.HOS 14:18
PROVIDERS: PCP Internal Medicine
DX: G56.03 Carpal tunnel syndrome, bilateral upper limbs (principal)
CPT/HCPCS: 99024

== ENCOUNTER → 2024-08-04 14:18 | Outpatient (BNVA) | payer MEDICARE, SELFPAY | PROVIDERS: PCP Internal Medicine | DX: G56.01 Carpal tunnel syndrome, right upper limb (principal); Z48.811 Encounter for surgical aftercare following surgery on the nervous system; Z98.890 Other specified postprocedural states | CPT/HCPCS: 99212 ==

== ENCOUNTER 2024-08-16 12:22 | Emergency (ER) | payer MEDICARE, SELFPAY ==
--- NOTE | ~2024-08-16 | CT_ITS ---
CLINICAL HISTORY: diffuse low back ABD pain with black stools. CT abdomen and pelvis with contrast Comparison: None Findings: No consolidation or effusion. Abnormal thickening of the sigmoid colon in the region of diverticulosis with surrounding stranding Trace free fluid. No free air or abscess. The liver, gallbladder, spleen, adrenal glands and pancreas are unremarkable. Kidneys, ureters and bladder are normal. Uterus and adnexa are within normal limits. No acute osseous finding. Mild to moderate atherosclerotic disease. Impression: Acute sigmoid diverticulitis without evidence of perforation. Follow-up recommended to ensure resolution. This document has been electronically signed by: Poncho Escobar MD on 08/16/2024 20:30:25
[2024-08-16 12:39] VITALS: BP 112/81; PULSE 100; RESP 19; TEMP 36.6; O2SAT 99; BMI 27.3
--- NOTE | 2024-08-16 12:43 | ED_ITS ---
HPI - Female Genitourinary General Chief complaint: Urogenital-Female Stated complaint: Low Abdominal Pain Time Seen by Provider: 08/16/24 18:01 Source: patient Mode of arrival: ambulatory Limitations: no limitations History of Present Illness ED Provider: Valeria Rich NP HPI Narrative: Patient is a 58-year-old female who presents emergency department for evaluation. She reports over the past month or so she has been experiencing intermittent diffuse lower abdominal lower back pain. She saw her primary care doctor before 07/22/2024, was told that she ?probably had a kidney stone and to go to the ED? but he ultimately decided not to as she had an upcoming carpal tunnel release surgery. Over the past week the pain has become more severe and constant. She admits to having increasing abdominal pressure with urination in dysuria. Reports a history kidney stones requiring surgery a few years ago, does not recall exactly what was performed. She also states that she has been having soft black stools for the past 2 days very small volume, without the use of supplementation. She denies any cleve red blood. Denies recent use of NSAIDS. Denies fevers, chills, chest pain, nausea, vomiting, hematemesis, diarrhea, constipation, hematochezia. denies pelvic pain or abnormal vaginal discharge. Denies concern for sexually transmitted infection. Related Data Home Medications ?Medication ?Instructions ?Recorded ?Confirmed famotidine 40 mg tablet 40 mg PO BEDTIME 10/17/23 gabapentin 300 mg capsule 300 mg PO BEDTIME 10/17/23 loratadine 10 mg tablet 10 mg PO DAILY 10/17/23 meclizine 12.5 mg tablet 12.5 mg PO QID PRN 10/17/23 naproxen 500 mg tablet,delayed 500 mg PO BID 10/17/23 release (EC-Naproxen) triamcinolone acetonide 0.1 % 1 appl topical TID 10/17/23 topical cream cyclobenzaprine 5 mg tablet 5 mg PO BEDTIME 07/02/24 Previous Rx's ?Medication ?Instructions ?Recorded hydrocortisone 1 % topical cream 1 appl topical TID PRN skin 10/17/23 irritation #28.35 grams amoxicillin 875 mg-potassium 1 tab PO BID #19 tabs 08/16/24 clavulanate 125 mg tablet Allergies Allergy/AdvReac Type Severity Reaction Status Date / Time nut - unspecified [nut] Allergy Mild RASH/ITCHIN Verified 08/16/24 12:41 G FRUIT Allergy Mild RASH/ITCH/THROAT Uncoded 08/16/24 12:41 CLOSES apples, pears, bryson, Allergy Unknown Itching Uncoded 08/16/24 12:41 peanut, Review of Systems 2 Review of Systems: Yes all other systems are reviewed and are negative PMFSH Past Medical History Attestation statement: The following information was validated with the patient. 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 No acute distress.?Normal affect.?? Neck: Normal inspection.? Neck supple.?? CVS: Heart sounds normal. Normal heart rate and rhythm.? Pulses normal.?? Respiratory: No respiratory distress.? Lung sounds clear to auscultation bilaterally?? Abdomen: Soft with diffuse lower abdominal tenderness upon palpation. No rebound tenderness at McBurney's point. Negative psoas sign. Negative Rovsing sign. Negative Abel sign. No CVAT. Normoactive bowel sounds. No pulsatile mass.?? Skin: Skin warm and dry.? Normal skin color.? Extremities: No lower extremity edema.? Neuro: Moves all extremities spontaneously. Sensation intact bilaterally. Ambulates with normal steady gait. Course Course Course Narrative: RME: 58-year-old female presents to ED for lower abdominal pain with pressure on urination and dysuria. Patient also states having flank pain. Patient states history of kidney stones that required surgery in the past. Labs UA ordered Reevaluation(s) Reevaluation #1: CT of the abdomen and pelvis bones reveals acute uncomplicated diverticulitis you received the 1st dose of amoxicillin/clavulanic acid in the emergency department sent prescription to pharmacy. Reviewed strict return precautions, outpatient follow-up with PCP. All questions answered. Stable for discharge Time: 21:37 Medications Administered Discontinued Medications Generic Name Dose Route Start Last Admin Trade Name Freq PRN Reason Stop Dose Admin Amoxicillin/Clavulanate Potassium 875 mg 08/16/24 21:36 08/16/24 21:45 Amoxicillin/Potassium Clav 875 Mg Tablet PO 08/16/24 21:37 875 mg ONCE ONE Administration Sodium Chloride 1,000 mls @ 999 mls/hr 08/16/24 19:00 08/16/24 21:19 Ns IV 08/16/24 20:00 Infused .Q1H1M NICK Infusion Iohexol 85 ml 08/16/24 19:35 08/16/24 19:35 Iohexol 350 Mg/Ml 100 Ml Infus..Btl IV 08/16/24 19:36 85 ml ONCE ONE Administration Morphine Sulfate 4 mg 08/16/24 18:59 08/16/24 19:40 Morphine Sulfate 4 Mg/Ml Cartridge IVPUSH 08/16/24 19:00 4 mg ONCE ONE Administration Protocol Ondansetron HCl 4 mg 08/16/24 18:59 08/16/24 19:39 Ondansetron Hcl 4 Mg/2 Ml Vial IVPUSH 08/16/24 19:00 4 mg ONCE ONE Administration Medical Decision Making Medical Decision Making MDM Narrative: Patient is a 58-year-old female with past medical history of nephrolithiasis, carpal tunnel syndrome s/p surgical release presenting for evaluation of lower abdominal lower back pain with the associated dysuria, pressure with urination, as well as black stools as per HPI. Symptoms has been intermittent over the past 4 weeks or so but progressively worse over the past week as per HPI. She appears significantly uncomfortable at the time my evaluation. She has exquisite diffuse lower abdominal tenderness upon palpation, no overt CVA tenderness. No signs of systemic toxicity she is afebrile without tachycardia no hypotension. Obtaining CT of the abdomen and pelvis for further evaluation; differential diagnosis to include obstructive uropathy, hydronephrosis, UTI, cystitis, appendicitis, diverticulitis, lower GIB. Differential Diagnosis Differential Diagnoses: The differential diagnosis associated with the presentation includes (See narrative above) Admission/Observation Consideration of admission/observation: Escalation of care including admission/observation considered (See narrative above ) Lab Data MDM Lab Attestation statement: I reviewed the patient's lab results. CBC is without leukocytosis anemia or thrombocytopenia. No electrolyte derangement. No EVANS. LFTs unremarkable, Lipase was normal. Urinalysis without evidence of infection or microscopic hematuria 08/16/24 14:49 08/16/24 14:49 Labs: Lab Results 08/16/24 08/16/24 Range/Units 14:49 19:20 WBC 8.4 (4.8-10.8) X10*3/uL RBC 4.51 (4.20-5.50) X10*6/uL Hgb 14.8 (12.0-16.0) g/dl Hct 41.9 (37.0-47.0) % MCV 92.9 (80.0-98.0) fL MCH 32.8 (27.0-33.0) pg MCHC 35.3 H (31.0-35.0) g/dl RDW 12.2 (11.0-16.0) % Plt Count 229 (160-400) X10*3/uL MPV 8.6 L (9.4-12.3) fL Immature Gran % (Auto) 0.2 (0.0-0.4) % Neut % (Auto) 65.0 (45-73) % Lymph % (Auto) 23.5 (20-40) % Simpson % (Auto) 8.4 (2-11) % Eos % (Auto) 2.5 (0-4) % Baso % (Auto) 0.4 (0-2) % Lymph # (Auto) 2.0 (1.2-4.9) X10*3/uL Simpson # (Auto) 0.7 (0.1-1.2) X10*3/uL Eos # (Auto) 0.2 (0.0-0.4) X10*3/uL Baso # (Auto) 0.0 (0.0-0.2) X10*3/uL Abs Immat Gran (auto) 0.02 (0.00-0.03) X10*3/uL Absolute Neuts (auto) 5.5 (2.0-8.3) x10*3/uL Absolute Nucleated RBC 0.000 (0.0-0.012) X10*3/uL Nucleated RBC % (auto) 0.0 (0.0-0.2) /100WBC Sodium 138 (135-145) mmol/L Potassium 4.1 (3.3-5.1) mmol/L Chloride 106 (96-108) mmol/L Carbon Dioxide 24 (22-29) mmol/L Anion Gap 12 (12-20) BUN 14 (9-16) mg/dL Creatinine 0.76 (0.5-1.4) mg/dL Estim Creat Clear Calc 66.3 Estimated GFR > 60 Random Glucose 88 (60-115) mg/dL Calcium 9.5 D (8.4-10.2) mg/dL Total Bilirubin 0.3 (0.0-1.0) mg/dL AST 23 (5-31) U/L ALT 28 (0-31) U/L Alkaline Phosphatase 79 (39-117) U/L Total Protein 8.1 H (6.5-8.0) g/dL Albumin 4.4 (3.5-5.0) g/dL Lipase 23 (8-78) U/L Urine Color Yellow Urine Appearance Clear Urine pH 6.0 (5.0-9.0) Ur Specific [place] 1.015 (1.005-1.025) Urine Protein Negative (Neg-Trace) mg/dL Urine Glucose (UA) Negative (Negative) mg/dL Urine Ketones Negative (Negative) mg/dL Urine Blood Negative (Negative) Urine Nitrite Negative (Negative) Ur Leukocyte Esterase Negative (Negative) Stool Occult Blood NEGATIVE (NEGATIVE) Radiology Impression Discussion of test interpretation with radiology: I have reviewed the radiologist's reading. Radiologist Impression: CT abdomen and pelvis with contrast Comparison: None Findings: No consolidation or effusion. Abnormal thickening of the sigmoid colon in the region of diverticulosis with surrounding stranding Trace free fluid. No free air or abscess. The liver, gallbladder, spleen, adrenal glands and pancreas are unremarkable. Kidneys, ureters and bladder are normal. Uterus and adnexa are within normal limits. No acute osseous finding. Mild to moderate atherosclerotic disease. Impression: Acute sigmoid diverticulitis without evidence of perforation. Follow-up recommended to ensure resolution. External Record Review External record reviewed: Outpatient record Prescription Management I considered prescription management with: Antibiotic Chronic Conditions Patient?s care impacted by: Other (See narrative above) Discharge Plan Discharge Clinical Impression: Diverticulitis Patient Disposition: Home, Self-Care Instructions: Diverticulitis (ED) Additional Instructions: Clear liquid diet over the next 24 hours. You were given the 1st dose of antibiotics in the emergency department. 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 Return with any new or worsening symptoms or concerns. Follow-up with your primary care doctor Prescriptions: New amoxicillin-pot clavulanate 875-125 mg tablet 1 tab PO BID Qty: 19 0RF No Action naproxen [EC-Naproxen] 500 mg tablet,delayed release (DR/EC) 500 mg PO BID famotidine 40 mg tablet 40 mg PO BEDTIME triamcinolone acetonide 0.1 % cream 1 appl topical TID loratadine 10 mg tablet 10 mg PO DAILY gabapentin 300 mg capsule 300 mg PO BEDTIME meclizine 12.5 mg tablet 12.5 mg PO QID PRN hydrocortisone 1 % cream 1 appl topical TID PRN (Reason: skin irritation) Qty: 28.35 0RF Rx Instructions: apply to affected insect bite three times a day as needed for itching cyclobenzaprine 5 mg tablet 5 mg PO BEDTIME Referrals: Julieth Blanco MD [Primary Care Provider] - Interventions: ED Discharge Assessment Last Done: 08/16/24 21:48 Discharge Date/Time: 08/16/24 21:55 Print Language: Peruvian
[2024-08-16 14:54] LABS: MANUAL DIFF FLAG NO
[2024-08-16 14:55] LABS: Basophils Percent Auto 0.4 % (0-2); Eosinophils Absolute Auto 0.2 X10*3/uL (0.0-0.4); Eosinophils Percent Auto 2.5 % (0-4); Hematocrit 41.9 % (37.0-47.0); Hemoglobin 14.8 g/dl (12.0-16.0); Imm Gran Abs Auto 0.02 X10*3/uL (0.00-0.03); Imm Gran Pct Auto 0.2 % (0.0-0.4); Lymphocytes Percent Auto 23.5 % (20-40); Mean Corpuscular HGB Conc 35.3 g/dl (31.0-35.0); Mean Corpuscular Hemoglobin 32.8 pg (27.0-33.0); Mean Corpuscular Volume 92.9 fL (80.0-98.0); Mean Platelet Volume 8.6 fL (9.4-12.3); Monocytes Absolute Auto 0.7 X10*3/uL (0.1-1.2); Monocytes Percent Auto 8.4 % (2-11); Neutrophils Absolute Auto 5.5 x10*3/uL (2.0-8.3); Platelet Count 229 X10*3/uL (160-400); Red Blood Count 4.51 X10*6/uL (4.20-5.50); Red Cell Distribution Width 12.2 % (11.0-16.0); White Blood Count 8.4 X10*3/uL (4.8-10.8)
[2024-08-16 14:57] LABS: Appearance Urine Clear; Color Urine Yellow; Glucose Urine UA Negative (Negative); Leukocyte Esterase Urine Negative (Negative); Nitrite Urine Negative (Negative); Specific Gravity - Urine 1.015 (1.005-1.025); Urine Blood Negative (Negative); Urine Ketones Negative (Negative); Urine Protein Negative (Neg-Trace)
[2024-08-16 15:09] LABS: Alanine Aminotransferase 28 U/L (0-31); Albumin Level 4.4 g/dL (3.5-5.0); Anion Gap 12 (12-20); Aspartate Amino Transferase 23 U/L (5-31); Bilirubin Total 0.3 mg/dL (0.0-1.0); Blood Urea Nitrogen 14 mg/dL (9-16); Calcium 9.5 mg/dL (8.4-10.2); Carbon Dioxide 24 mmol/L (22-29); Chloride 106 mmol/L (96-108); Creatinine Clr Calc Pharmacy 66.3; Estimated Glomerular Filt Rate > 60; Glucose Random 88 mg/dL (60-115); Potassium 4.1 mmol/L (3.3-5.1); Sodium 138 mmol/L (135-145); Total Protein 8.1 g/dL (6.5-8.0)
[2024-08-16 16:07] LABS: Alkaline Phosphatase 79 U/L (39-117)
[2024-08-16 17:36] VITALS: BP 134/87; PULSE 88; RESP 16; TEMP 36.3; O2SAT 98
--- OUTSIDE RECORDS SUMMARY | 2024-08-16 17:56 | XMS_ITS | Encounter Summary ---
[facility] Organization [facility] Address [address] [place] [address] Care Team Providers Care Shipping Processor Name Role Phone Physician, Pcp Unknown Primary Care Provider Halley vailable Encounter Details Date Type Department Care Team (Late st Contact Info) Description 08/11/2024 Lab Requisition [facility] - Main Lab [address] [facility] [place] [address] Julieth Blanco MD [address] [place] [address] [place] [address] Encounter for screening for malignant neoplasm of cervix Social History Tobacco Use Types Packs/Day Years Used Date Smoking Tobacco: Never Assessed Comments Unknown Sex and Gender Information Value Date Recorded Sex Assigned at Not on file Legal Sex Female 2:15 AM EST Gender Identity Not on file Sexual Orientation Not on file documented as of this encounter Plan of Treatment Not on file documented as of this encounter Procedures Procedure Name Priority Date/Time Associated Diagnosis Comments CHLAMYDIA TRACHOMATIS AND NEISSERIA GONORRHOEAE BY TMA, THINPREP Routine 08/09/2024 12:00 AM EDT Encounter for screening for malignant neoplasm of cervix HPV WITH REFLEX GENOTYPE Routine 08/09/2024 12:00 AM EDT Encounter for screening for malignant neoplasm of cervix TRICHOMONAS VAGINALIS PCR Routine 08/09/2024 12:00 AM EDT Encounter for screening for malignant neoplasm of cervix PAP SMEAR Routine 08/09/2024 12:00 AM EDT Encounter for screening for malignant neoplasm of cervix documented in this encounter Results * HPV with reflex genotype (08/09/2024 12:00 AM EDT) Pathologist [facility] HPV Negative Negative LAB MICROBIOLOGY METHOD 08/12/2024 1:12 PM EDT [facility] Brushing/Spatula Cervix uteri structure / Unknown 08/09/2024 08/11/2024 11:49 AM EDT us Julieth Blanco MD LAB MOLECULAR DIAGNOSTICS ORD ERABLES Final Result [facility] [address] [place] [address], [place] [phone] * Trichomonas vaginalis molecular study (08/09/2024 12:00 AM EDT) Trichomonas vaginalis Negative Negative LAB MICROBIOLOGY METHOD 08/12/2024 12:24 PM EDT [facility] Brushing/Spatula Cervix uteri structure / Unknown 08/09/2024 08/11/2024 11:49 AM EDT us Julieth Blanco MD LAB BLOOD ORDERABLES Final Re sult Performing Organization Address City/[facility]/ZIP Co de Phone Number [facility] [address] [place] [address], [place] [phone] * Chlamydia trachomatis and neisseria gonorrhoeae by tma, thinprep (08/09/2024 12:00 AM EDT) N. gonorrhoeae, RNA Probe Negative Negative LAB MICROBIOLOGY METHOD 08/12/2024 12:19 PM EDT [facility] Chlamydia, RNA Probe Negative Negative LAB MICROBIOLOGY METHOD 08/12/2024 12:19 PM EDT [facility] Brushing/Spatula Cervix uteri structure / Unknown 08/09/2024 08/11/2024 11:49 AM EDT us Julieth Blanco MD LAB CYTOLOGY ORDERABLES Final Result [facility] [address] [place] [address], [place] [phone] * Pap smear (08/09/2024 12:00 AM EDT) Interpretation Negative for intraepithelial lesion or malignancy 08/13/2024 7:58 AM EDT [facility] General Categorization Negative 08/13/2024 7:58 AM EDT [facility] Other Findings Atrophy 08/13/2024 7:58 AM EDT [facility] Specimen Adequacy Satisfactory for evaluation 08/13/2024 7:58 AM EDT [facility] Pap Methodology Liquid Based Pap Test 08/13/2024 7:58 AM EDT [facility] Disclaimer The Pap test is a screening test which carries an inherent false negative rate. These test results should be correlated with the patient's clinical findings and history. This Pap test was processed using an automated screening system. Technical cytopathology services provided by [facility], at [address] [place] [id number] (CLIA # [id number]/Isabel Sims MD, Alliances Consultant.) 08/13/2024 7:58 AM EDT [facility] Console Pap Interpretation Reported 08/13/2024 7:58 AM EDT [facility] Brushing/Spatula Cervix uteri structure / Unknown 08/09/2024 08/11/2024 11:49 AM EDT us Julieth Blanco MD LAB CYTOLOGY ORDERABLES Final Result [facility] [address] [place] [address], [place] [phone] documented in this encounter Visit Diagnoses Diagnosis Encounter for screening for malignant neoplasm of cervix documented in this encounter Care Teams Shipping Processor Relationship Specialty Start Date End Date Physician, Pcp Unknown PCP - General 08/11/24 documented as of this encounter
--- OUTSIDE RECORDS SUMMARY | 2024-08-16 17:56 | XMS_ITS | Clinical Summary ---
Author Organization [address] [facility] Address [address] [place] [address] Phone Care Team Providers Care Athletic Gear Custodian Name Role Phone Physician, Pcp Unknown Primary Care Provider Halley vailable Encounters Date Type Department Care Team Description 08/11/2024 Lab Requisition [facility] - Main Lab [address] [facility] [place] [address] Julieth Blanco MD Encounter for screening for malignant neoplasm of cervix from Last 3 Months Social History Tobacco Use Types Packs/Day Years Used Date Smoking Tobacco: Never Assessed Comments Unknown Sex and Gender Information Value Date Recorded Sex Assigned at Not on file Legal Sex Female 2:15 AM EST Gender Identity Not on file Sexual Orientation Not on file Plan of Treatment Health Maintenance Due Date Last Done Comments Breast Cancer Screening 1965 DTaP,Tdap,and Td Vaccines (1 - Tdap) 08/22/1983 Hepatitis B Vaccines (1 of 3 - 19+ 3-dose series) 08/22/1983 Pneumococcal Vaccine: 50+ Ye ars (1 of 1 - PCV) 2014 Zoster Vaccines (1 of 2) 2014 COVID-19 Vaccine (2023-2 5 season) 2023 Colorectal Cancer Screening: Colonoscopy 08/11/2024 Depression Screening 08/11/2024 HIV Screening 08/11/2024 Hepatitis C Screening 08/11/2024 Social Influencers of Health Screening 08/11/2024 Influenza Vaccine (Season Ended) 2024 Cervical Cancer Screening: HPV 08/09/2029 08/09/2024 RSV Immunization Adult Patie nts (1 - 1-dose 75+ series) 08/22/2039 HIB Vaccines Aged Out No longer eligi ble based on patient's age to complete this topic HPV Vaccines Aged Out No longer eligi ble based on patient's age to complete this topic Hepatitis A Vaccines Aged Out No long er eligible based on patient's age to complete this topic IPV Vaccines Aged Out No longer eligi ble based on patient's age to complete this topic MMR Vaccines Aged Out No longer eligi ble based on patient's age to complete this topic Meningococcal ACWY Vaccine Aged Out N o longer eligible based on patient's age to complete this topic Meningococcal B Vaccine Aged Out No l onger eligible based on patient's age to complete this topic Pneumococcal Vaccine: Pediat rics (0 to 5 Years) and At-Risk Patients (6 to 64 Years) Aged Out No longer eligi ble based on patient's age to complete this topic RSV Immunization Patients Un raven 20 months Aged Out No longer eligible b ased on patient's age to complete this topic Varicella Vaccines Aged Out No longer eligible based on patient's age to complete this topic Procedures Procedure Name Priority Date/Time Associated Diagnosis [...] for screening for malignant neoplasm of cervix from Last 3 Months Results * Chlamydia trachomatis and neisseria gonorrhoeae by tma, thinprep (08/09/2024 12:00 AM EDT) N. gonorrhoeae, RNA Probe Negative Negative LAB MICROBIOLOGY METHOD 08/12/2024 12:19 PM EDT [facility] Chlamydia, RNA Probe Negative Negative LAB MICROBIOLOGY METHOD 08/12/2024 12:19 PM EDT [facility] Brushing/Spatula Cervix uteri structure / Unknown 08/09/2024 08/11/2024 11:49 AM EDT us Julieth Blanco MD LAB CYTOLOGY ORDERABLES Final Result Performing Organization Address City/[facility]/ZIP Co de Phone Number [facility] [address] [place] [address], [place] [phone] * HPV with reflex genotype (08/09/2024 12:00 AM EDT) HPV Negative Negative LAB MICROBIOLOGY METHOD 08/12/2024 1:12 PM EDT [facility] Brushing/Spatula Cervix uteri structure / Unknown 08/09/2024 08/11/2024 11:49 AM EDT us Julieth Blanco MD LAB MOLECULAR DIAGNOSTICS ORD ERABLES Final Result Performing Organization Address [facility]/ZIP Co de Phone Number [facility] [address] [place] [address], [place] [phone] * Trichomonas vaginalis molecular study (08/09/2024 12:00 AM EDT) Trichomonas vaginalis Negative Negative LAB MICROBIOLOGY METHOD 08/12/2024 12:24 PM EDT [facility] Brushing/Spatula Cervix uteri structure / Unknown 08/09/2024 08/11/2024 11:49 AM EDT us Julieth Blanco MD LAB BLOOD ORDERABLES Final Re sult Performing Organization Address City/[facility]/ZIP Co de Phone Number [facility] [address] [place] [address], [place] [phone] * Pap smear (08/09/2024 12:00 AM EDT) Interpretation Negative for intraepithelial lesion or malignancy 08/13/2024 7:58 AM EDT [facility] General Categorization Negative 08/13/2024 7:58 AM EDT [facility] Other Findings Atrophy 08/13/2024 7:58 AM EDT [facility] Specimen Adequacy Satisfactory for evaluation 08/13/2024 7:58 AM EDT [facility] Pap Methodology Liquid Based Pap Test 08/13/2024 7:58 AM EDT [facility] Disclaimer The Pap test is a screening test which carries an inherent false negative rate. These test results should be correlated with the patient's clinical findings and history. This Pap test was processed using an automated screening system. Technical cytopathology services provided by [facility], at [address] [place] [id number] (CLIA # [id number]/Isabel Sims MD, Piper Helper.) 08/13/2024 7:58 AM EDT [facility] Console Pap Interpretation Reported 08/13/2024 7:58 AM EDT [facility] Brushing/Spatula Cervix uteri structure / Unknown 08/09/2024 08/11/2024 11:49 AM EDT us Julieth Blanco MD LAB CYTOLOGY ORDERABLES Final Result [facility] [address] [place] [address], from Last 3 Months Insurance MEDICAID - [place] Care Teams Athletic Gear Custodian Relationship Specialty Start Date End Date Physician, Pcp Unknown PCP - General 08/11/24
[2024-08-16 18:52] VITALS: BP 148/90; PULSE 76; RESP 16; O2SAT 98
[2024-08-16 19:18] LABS: Lipase 23 U/L (8-78)
[2024-08-16] MEDS: 0.9 % Sodium Chloride 1,000 ML 999 ML IV (19:19)
[2024-08-16 19:25] LABS: OBS Int Ctl Valid YES; OBS1 NEGATIVE (NEGATIVE)
[2024-08-16] MEDS: iohexoL 350 MG/ML 100 ML INFUS..BTL 85 ML IV (19:35)
[2024-08-16] MEDS: ondansetron HCL 4 MG/2 ML VIAL IVPUSH (19:39)
[2024-08-16] MEDS: Morphine Sulfate 4 MG/ML CARTRIDGE IVPUSH (19:40)
[2024-08-16 20:00] VITALS: BP 148/75; PULSE 62; RESP 18; TEMP 36.6; O2SAT 99
[2024-08-16] MEDS: Amoxicillin/Potassium Clav 875 MG TABLET PO (21:45)
[2024-08-16 21:48] VITALS: BP 148/75; PULSE 62; RESP 18; TEMP 36.6; O2SAT 99
== END 2024-08-16 21:55 | disposition home or self-care (01) ==
PROVIDERS: Nurse Practitioner Family; Physician Assistant; Emergency Provider Emergency Medicine Emergency Medical Services; PCP Internal Medicine
DX: K57.92 Diverticulitis of intestine, part unspecified, without perforation or abscess without bleeding (principal); M54.50 Low back pain, unspecified; R10.30 Lower abdominal pain, unspecified; R30.0 Dysuria
CPT/HCPCS: 36415; 74177; 80053; 81003; 82272; 83690; 85025; 96361; 96374; 96375; 99284; J2270; J2405; Q9967

== ENCOUNTER → 2024-08-16 18:52 | Outpatient (BNV) | payer MEDICARE, SELFPAY | PROVIDERS: Emergency Provider Emergency Medicine Emergency Medical Services; PCP Internal Medicine; Visit Provider Radiology Vascular & Interventional Radiology | DX: K57.32 Diverticulitis of large intestine without perforation or abscess without bleeding (principal) | CPT/HCPCS: 74177 ==

== ENCOUNTER 2024-09-14 10:47 | Outpatient (REF) | payer MEDICARE, SELFPAY ==
[2024-09-14 15:53] LABS: Urine Cytology See Pathology rpt
== END 2024-09-14 10:48 | disposition home or self-care (01) ==
LOC: HO.LAB 10:47
PROVIDERS: PCP Internal Medicine; Visit Provider Nurse Practitioner Family
DX: R31.29 Other microscopic hematuria (principal); Z87.891 Personal history of nicotine dependence; N20.0 Calculus of kidney
CPT/HCPCS: 81003; 88112; 99202

== ENCOUNTER 2024-09-14 10:47 | Outpatient (AMB) | payer MEDICARE, SELFPAY ==
--- NOTE | 2024-09-14 10:50 | A.OFFVIS_ITS ---
Intake Visit Reasons: history of kidney stones Intake Note: New Patient presents for initial visit for history of kidney stones Urology Medications: none Blood Thinner: none Cost Consultant Required: No Accompanied by: Self / Same As Patient Allergies nut - unspecified [nut] Allergy (Mild, Verified 09/14/24 11:10) RASH/ITCHING FRUIT Allergy (Mild, Uncoded 09/14/24 11:10) RASH/ITCH/THROAT CLOSES apples, pears, bryson, peanut, Allergy (Unknown, Uncoded 09/14/24 11:10) Itching Medication List - Last Reconciled 09/14/24 by ANT Mahoney cyclobenzaprine 5 mg PO BEDTIME famotidine 40 mg PO BEDTIME gabapentin 300 mg PO BEDTIME loratadine 10 mg PO DAILY meclizine 12.5 mg PO QID PRN naproxen (EC-Naproxen) 500 mg PO BID HPI Comments Details: Danay is a pleasant 59-year-old female patient of Dr. Blanco. She has a past medical history of nephrolithiasis and carpal tunnel syndrome. She presents to the office today as a new patient for her longstanding history of nephrolithiasis. In discussion with the patient today she reports a longstanding history of nephrolithiasis since 2018. She reports previously following up with Dr. Chaney and had been undergoing surveillance monitoring. She does report a previous surgical intervention for nephrolithiasis however does not recall exact procedure. She reports approximately 1 month ago she had been experiencing intermittent diffuse lower abdominal and lower back pain at which time she thought she was having a flare-up of her nephrolithiasis. It appears a CT of the abdomen and pelvis with contrast was ordered and obtained these results were reviewed and communicated with the patient today. 09/05 bilateral kidneys, ureters, and bladder are within normal limits. Acute sigmoid diverticulitis without evidence of perforation. She reports she was given Augmentin by ER provider and has since been feeling better. She currently denies any bothersome urinary issues. She denies urinary urgency, urinary frequency, incontinence, nocturia, hematuria, dysuria, foul smelling urine, changes to urinary stream, flank pain, fever, and or chills. She is happy with her current voiding parameters. In office urinalysis results reviewed with the patient today trace microscopic hematuria noted. When asked she does report a previous history of nicotine dependence for approximately 20 years however quit 11 years ago. We discussed at length potential causes of microscopic hematuria as well as further workup in risks and benefits of these interventions. She discusses having had recent carpal tunnel syndrome surgery on her left hand and feels the change in her diet triggered potential GI issues. When asked she reports compliance with drinking plenty of water daily. She also reports compliance with vitamin B6 as prescribed. She discusses following up with her PCP in the next 3 months and will further discuss potential gastroenterology referral. All questions were answered. She otherwise offers no other issues or concerns at this time. Plan In the course of our discussion, I found no evidence of current kidney stones, validated by the most recent CT scan findings. The patient was advised to maintain a fluid intake of at least 60 ounces of water daily to reduce future stone risk. Monitoring for diverticulitis was emphasized, and a potential gastroenterological consultation might be necessary should symptoms recur or persist. Further management by her PCP will include consideration of gastrointestinal evaluation if warranted. Surveillance of hematuria is suggested, focusing on any progression or association with urinary issues, and keeping her primary care provider informed remains paramount. Patient was informed and verbally consented to the use of an ambient scribe for clinic note documentation during this visit. Discussion Notes I thoroughly discussed the current findings with the patient, emphasizing the absence of kidney stones and the ongoing management of diverticulitis. We also reviewed the guidelines for fluid intake to prevent further kidney stones, with a recommended daily intake of at least 60 ounces of water. My discussion covered the possibility of consulting a exercise physiologist if episodes of diverticulitis continue, emphasizing the importance of sharing developments with her primary care physician. I reiterated the provisional nature of current monitoring and communicated reasons for potential further investigation, especially if bowel habits or other symptoms abnormally persist/or present. 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 [employer] Review of Systems Const All systems reviewed & are unremarkable except as noted in HPI and below Physical Exam Const General: cooperative, healthy appearing, comfortable, no acute distress, well developed, alert and awake Orientation/consciousness: patient oriented x3 Limitations: no limitations HEENT Head: Yes normal to inspection, Yes normocephalic and Yes atraumatic Ears: hearing grossly normal bilaterally Eyes General: appearance normal, both eyes and all related structures Neck Neck: Yes normal visual inspection and Yes trachea midline Chest Chest palpation & inspection: normal inspection of the chest Resp Effort & Inspection: normal respiratory effort and able to speak in complete sentences Cardio Rate: regular rate GI Inspection: Yes normal to inspection General: Yes no CVA tenderness Back/Spine/Pelvis Back: no CVA tenderness Skin General skin exam: no rashes or lesions noted Neuro General: patient oriented x3 Extrem General: Yes normal to inspection Psych Appearance: grossly normal and well kempt Mental Status: mental status grossly normal Speech and movement: Normal speech and movement present and Clear speech present Affect: normal affect Attitude: cooperative Thought process: Normal thought process present Thought content: Normal thought content present Insight: Fair insight present (Psych) Judgement: Fair judgement present (Psych) Results AMB Urinalysis, Automated UA Leukoctes 0 True/uL Last Edit by Victoriano Castano on 09/14/24 11:10 UA Nitrite Last Edit by Victoriano Castano on 09/14/24 11:10 UA Urobilinogen 3.5 mg/dL Last Edit by Victoriano Castano on 09/14/24 11:10 UA Protein 0 mg/dL Last Edit by Victoriano Castano on 09/14/24 11:10 UA pH 6.5 Last Edit by Victoriano Castano on 09/14/24 11:10 UA Blood 10 Mitchell/uL Last Edit by Victoriano Castano on 09/14/24 11:10 UA Specific [place] 1.015 Last Edit by Victoriano Omaira on 09/14/24 11:10 UA Ketone Last Edit by Victoriano Omaira on 09/14/24 11:10 UA Bilirubin 0 mg/dL Last Edit by Victoriano Omaira on 09/14/24 11:10 UA Glucose 0 mg/dL Last Edit by Victoriano Omaira on 09/14/24 11:10 Results Reviewed Results Reviewed: Date of Service: 08/16/24 Findings: No consolidation or effusion. Abnormal thickening of the sigmoid colon in the region of diverticulosis with surrounding stranding Trace free fluid. No free air or abscess. The liver, gallbladder, spleen, adrenal glands and pancreas are unremarkable. Kidneys, ureters and bladder are normal. Uterus and adnexa are within normal limits. No acute osseous finding. Mild to moderate atherosclerotic disease. Impression: Acute sigmoid diverticulitis without evidence of perforation. Follow-up recommended to ensure resolution. Assessment & Plan Assessment & Plan (1) Microscopic hematuria: Code(s): R31.29 - Other microscopic hematuria Category: Medical (2) History of nicotine dependence: Code(s): Z87.891 - Personal history of nicotine dependence Category: Medical (3) Kidney stones: Code(s): N20.0 - Calculus of kidney Category: Medical Plan In office urinalysis results reviewed with the patient today; as noted above; will send for urine cytology. Most recent CT imaging results reviewed with the patient today; as noted above. All questions were answered. She currently denies any bothersome urinary issues or concerns. We discussed importance of continuing to drink plenty of water daily Continue vitamin B6 as discussed and prescribed. We discussed adding 1 oz of lemon juice to water daily. We discussed potential causes of microscopic; we discussed further intervention and risks and benefits of these interventions. Will continue with surveillance monitoring. Renal ultrasound in 6 months Follow-up in 6 months with imaging to be completed prior; or sooner with any issues, concerns, and or questions. Orders: Orders AMB Urinalysis Automated Today Z13.9 - Encounter for screening, unspecified Urine Cytology Today R31.29 - Other microscopic hematuria, Z87.891 - Personal history of nicotine dependence US renal BI 6 Months N20.0 - Calculus of kidney Patient Instructions: The patient had an opportunity to ask questions regarding the treatment plan. All questions were answered. Physical exam, labs, and imaging were discussed and reviewed in detail. As well as risks, benefits, and discussion of treatment choices. No major barriers to understanding were identified. The patient expressed understanding and agreement with the above treatment plan. The patient was made aware they should contact our office by phone for worsening of their current condition, the appearance of new symptoms, or with any questions or concerns. Compliance is encouraged with any medications and follow up testing that is ordered. It is a privilege to be allowed the opportunity to participate in? your urological care.? Again, if you have any questions or concerns If you have any questions or concerns please do not hesitate to contact me. The office is [phone]. This note is constructed using voice recognition software. While every effort has been made to ensure accuracy fashion intern errors may have been included. Yours sincerely, ANT Mahoney Coding Level of Care Code New Pt Level 3 (29511) Diagnoses Microscopic hematuria R31.29 History of nicotine dependence Z87.891 Kidney stones N20.0
--- OUTSIDE RECORDS SUMMARY | 2024-09-14 12:25 | XMS_ITS | Encounter Summary ---
Author Organization [facility] Address [address] [place] [address] Care Team Providers Care Clothing And Textiles Teacher Name Role Phone Physician, Pcp Unknown Primary Care Provider Halley vailable Encounter Details Date Type Department Care Team (Late st Contact Info) Description 08/11/2024 Lab Requisition [facility] - Main Lab 299 [facility] [place] [address] Julieth Blanco MD [address] [place] [address] [place] [address] Encounter for screening for malignant neoplasm of [...] reflex genotype (08/09/2024 12:00 AM EDT) Pathologist [facility] HPV Negative Negative LAB MICROBIOLOGY METHOD 08/12/2024 1:12 PM EDT [facility] Brushing/Spatula Cervix uteri structure / Unknown 08/09/2024 08/11/2024 11:49 AM EDT us Julieth Blanco MD LAB MOLECULAR DIAGNOSTICS ORD ERABLES Final Result [facility] [address] [place] [address], [place] [phone] * Trichomonas vaginalis molecular study (08/09/2024 12:00 AM EDT) Trichomonas vaginalis Negative Negative LAB MICROBIOLOGY METHOD 08/12/2024 12:24 PM EDT [facility] Brushing/Spatula Cervix uteri structure / Unknown 08/09/2024 08/11/2024 11:49 AM EDT us Julieth Blanco MD LAB BLOOD ORDERABLES Final Re sult Performing Organization Address City/[facility]/ZIP Co de Phone Number [facility] [address] [place] [address], [place] [phone] * Chlamydia trachomatis and neisseria gonorrhoeae by tma, thinprep (08/09/2024 12:00 AM EDT) N. gonorrhoeae, RNA Probe Negative Negative LAB MICROBIOLOGY METHOD 08/12/2024 12:19 PM EDT [facility] Chlamydia, RNA Probe Negative Negative LAB MICROBIOLOGY METHOD 08/12/2024 12:19 PM EDT [facility] Brushing/Spatula Cervix uteri structure / Unknown 08/09/2024 08/11/2024 11:49 AM EDT us Julieth Blanco MD LAB CYTOLOGY ORDERABLES Final Result [facility] [address] [place] [address], [place] [phone] * Pap smear (08/09/2024 12:00 AM EDT) Interpretation Negative for intraepithelial lesion or malignancy 08/13/2024 7:58 AM EDT [facility] General Categorization Negative 08/13/2024 7:58 AM EDT [facility] Other Findings Atrophy 08/13/2024 7:58 AM EDT [facility] Specimen Adequacy Satisfactory for evaluation 08/13/2024 7:58 AM EDT [facility] Pap Methodology Liquid Based Pap Test 08/13/2024 7:58 AM EDT [facility] Disclaimer The Pap test is a screening test which carries an inherent false negative rate. These test results should be correlated with the patient's clinical findings and history. This Pap test was processed using an automated screening system. Technical cytopathology services provided by [facility], at [address] [place] [address] (CLIA # [id number]/Isabel Sims MD, Debt Collection Specialist.) 08/13/2024 7:58 AM EDT [facility] Console Pap Interpretation Reported 08/13/2024 7:58 AM EDT [facility] Brushing/Spatula Cervix uteri structure / Unknown 08/09/2024 08/11/2024 11:49 AM EDT us Julieth Blanco MD LAB CYTOLOGY ORDERABLES Final Result [facility] [address] [place] [address], [place] [phone] documented in this encounter Visit Diagnoses Diagnosis Encounter for screening for malignant neoplasm of cervix documented in this encounter Care Teams Clothing And Textiles Teacher Relationship Specialty Start Date End Date Physician, Pcp Unknown PCP - General 08/11/24 documented as of this encounter
== END 2024-09-14 12:01 | disposition home or self-care (01) ==
LOC: HO.HUSH 10:48
PROVIDERS: PCP Internal Medicine; Visit Provider Nurse Practitioner Family
DX: R31.29 Other microscopic hematuria (principal); Z87.891 Personal history of nicotine dependence; N20.0 Calculus of kidney; Z13.9 Encounter for screening, unspecified
CPT/HCPCS: 99203

== ENCOUNTER 2024-11-19 11:36 | Outpatient (AMB) | payer MEDICARE, SELFPAY ==
--- OUTSIDE RECORDS SUMMARY | 2024-11-19 11:39 | XMS_ITS | Encounter Summary ---
Author Organization [facility] Address [address] [place] [address] Care Team Providers Care Vice President Of News Name Role Phone Physician, Pcp Unknown Primary Care Provider Halley vailable Encounter Details Date Type Department Care Team (Late st Contact Info) Description 08/11/2024 Lab Requisition [facility] - Main Lab 299 [facility] [place] [address] Julieth Blanco MD [address] [place] [address] [place] [address] Encounter for screening for malignant neoplasm of [...] reflex genotype (08/09/2024 12:00 AM EDT) Pathologist [facility] HPV Negative Negative LAB MICROBIOLOGY METHOD 08/12/2024 1:12 PM EDT [facility] Brushing/Spatula Cervix uteri structure / Unknown 08/09/2024 08/11/2024 11:49 AM EDT us Julieth Blanco MD LAB MOLECULAR DIAGNOSTICS ORD ERABLES Final Result [facility] [address] [place] [address], [place] [phone] * Trichomonas vaginalis molecular study (08/09/2024 12:00 AM EDT) Trichomonas vaginalis Negative Negative LAB MICROBIOLOGY METHOD 08/12/2024 12:24 PM EDT [facility] Brushing/Spatula Cervix uteri structure / Unknown 08/09/2024 08/11/2024 11:49 AM EDT us Julieth Blanco MD LAB BLOOD ORDERABLES Final Re sult Performing Organization Address City/[facility]/ZIP Co de Phone Number [facility] [address] [place] [address], [place] [phone] * Chlamydia trachomatis and neisseria gonorrhoeae by tma, thinprep (08/09/2024 12:00 AM EDT) N. gonorrhoeae, RNA Probe Negative Negative LAB MICROBIOLOGY METHOD 08/12/2024 12:19 PM EDT [facility] Chlamydia, RNA Probe Negative Negative LAB MICROBIOLOGY METHOD 08/12/2024 12:19 PM EDT [facility] Brushing/Spatula Cervix uteri structure / Unknown 08/09/2024 08/11/2024 11:49 AM EDT us Julieth Blanco MD LAB CYTOLOGY ORDERABLES Final Result [facility] [address] [place] [address], [place] [phone] * Pap smear (08/09/2024 12:00 AM EDT) Interpretation Negative for intraepithelial lesion or malignancy 08/13/2024 7:58 AM EDT [facility] General Categorization Negative 08/13/2024 7:58 AM EDT [facility] Other Findings Atrophy 08/13/2024 7:58 AM EDT [facility] Specimen Adequacy Satisfactory for evaluation 08/13/2024 7:58 AM EDT [facility] Pap Methodology Liquid Based Pap Test 08/13/2024 7:58 AM EDT [facility] Disclaimer The Pap test is a screening test which carries an inherent false negative rate. These test results should be correlated with the patient's clinical findings and history. This Pap test was processed using an automated screening system. Technical cytopathology services provided by [facility], at [address] [place] [id number] (CLIA # [id number]/Isabel Sims MD, Solar Sales Rep.) 08/13/2024 7:58 AM EDT [facility] Console Pap Interpretation Reported 08/13/2024 7:58 AM EDT [facility] Brushing/Spatula Cervix uteri structure / Unknown 08/09/2024 08/11/2024 11:49 AM EDT us Julieth Blanco MD LAB CYTOLOGY ORDERABLES Final Result [facility] [address] [place] [address], [place] [phone] documented in this encounter Visit Diagnoses Diagnosis Encounter for screening for malignant neoplasm of cervix documented in this encounter Care Teams Vice President Of News Relationship Specialty Start Date End Date Physician, Pcp Unknown PCP - General 08/11/24 documented as of this encounter
--- NOTE | 2024-11-19 11:47 | MHC.OFFVIS ---
Intake Visit Reasons: OV discuss RT Repeat CTR Intake Note: Danay is a 59 year old right hand dominant female who presents today to discuss repeat right carpal tunnel release. Patient has a history of bilateral carpal tunnel release, last done 20 years ago. She recently had a repeat left carpal tunnel release, 07/22/[address] Hawk. States she is not interested in surgery at this time. IMPRESSION 05/28/24: 1. This is an abnormal study. 2. There is electrodiagnostic evidence for bilateral moderate-severe median neuropathy at the wrist, consistent with carpal tunnel syndrome. 3. There is no electrodiagnostic evidence for ulnar neuropathy, brachial plexopathy, or cervical radiculopathy. Allergies nut - unspecified (nut) Allergy (Mild, Verified 11/19/24 11:50) RASH/ITCHING FRUIT Allergy (Mild, Uncoded 11/19/24 11:50) RASH/ITCH/THROAT CLOSES apples, pears, bryson, peanut, Allergy (Unknown, Uncoded 11/19/24 11:50) Itching HPI HPI OV discuss RT Repeat CTR: Details: Danay is a 59 year old right hand dominant female who presents today to discuss repeat right carpal tunnel release. Patient has a history of bilateral carpal tunnel release, last done 20 years ago. She recently had a repeat left carpal tunnel release, 07/22/[address] Hawk. Patient initially states she is not interested in surgery at this time, however once the winter comes she we will be interested in repeat carpal tunnel release on the right. IMPRESSION 05/28/24: 1. This is an abnormal study. 2. There is electrodiagnostic evidence for bilateral moderate-severe median neuropathy at the wrist, consistent with carpal tunnel syndrome. 3. There is no electrodiagnostic evidence for ulnar neuropathy, brachial plexopathy, or cervical radiculopathy. 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 Neuro: Normal sensation of the tips of all digits of the right hand at this time Vascular: Cap refill brisk Pain: No tenderness to palpation noted about incision site on volar left wrist ROM: Patient is able to make a closed fist and extend all digits of the right hand fully Skin: Well approximated and well healed incision site noted on the volar left wrist No lacerations or abrasions. General: No ecchymosis, erythema, or evidence of infection. Psych: Appears grossly normal Affect normal Attitude cooperative Assessment & Plan Assessment & Plan (1) Bilateral carpal tunnel syndrome: Code(s): G56.03 - Carpal tunnel syndrome, bilateral upper limbs Category: Medical Plan 1. Carpal tunnel syndrome, right Did have right carpal tunnel release ?many years ago? I educated the patient about the condition. I discussed both operative and nonoperative treatment options. The patient would like to proceed with surgery. The risks and benefits of operative treatment were discussed with the patient and the patient wishes to proceed with surgery. These risks include, but are not limited to, risk of damage to blood vessels, nerves, tendons, infection, recurrence, incomplete relief of preoperative symptoms, persistent pain, possible need for further surgery, and the risks associated with regional blocks and/or anesthesia. Plan is to take the patient to the operating room at some point in the next few weeks for the following procedures: 1. Right repeat carpal tunnel release under local All of the preoperative paperwork including the consent was discussed today. All of the patient's questions were answered in the clinic today. The patient understands that they will be in contact with our surgical garment assembly supervisor to discuss scheduling their procedure. Patient denies diabetes, blood thinners, asthma, heart issues, lung issues, kidney issues, or current smoking. Coding Level of Care Code Est Pt Level 4 (40284) Diagnoses Bilateral carpal tunnel syndrome G56.03
== END 2024-11-19 12:09 | disposition home or self-care (01) ==
LOC: HO.HOS 11:36
PROVIDERS: PCP Internal Medicine
DX: G56.03 Carpal tunnel syndrome, bilateral upper limbs (principal)
CPT/HCPCS: 99214

== ENCOUNTER → 2024-11-19 11:36 | Outpatient (BNVA) | payer MEDICARE, SELFPAY | PROVIDERS: PCP Internal Medicine | DX: G56.03 Carpal tunnel syndrome, bilateral upper limbs (principal) | CPT/HCPCS: 99212 ==

== ENCOUNTER 2025-02-08 13:50 | Outpatient (REF) | payer MEDICARE, SELFPAY ==
[2025-02-08 14:01] LABS: MANUAL DIFF FLAG NO
[2025-02-08 14:23] LABS: Hematocrit 38.9 % (37.0-47.0); Hemoglobin 13.3 g/dl (12.0-16.0); Imm Gran Abs Auto 0.01 X10*3/uL (0.00-0.03); Imm Gran Pct Auto 0.2 % (0.0-0.4); Lymphocytes Absolute Auto 1.8 X10*3/uL (1.2-4.9); Mean Corpuscular HGB Conc 34.2 g/dl (31.0-35.0); Mean Corpuscular Hemoglobin 32.0 pg (27.0-33.0); Mean Corpuscular Volume 93.7 fL (80.0-98.0); NRBC Abs Auto 0.000 X10*3/uL (0.0-0.012); NRBC Pct Auto 0.0 /100WBC (0.0-0.2); Platelet Count 227 X10*3/uL (160-400); Red Blood Count 4.15 X10*6/uL (4.20-5.50); White Blood Count 5.2 X10*3/uL (4.8-10.8)
[2025-02-08 15:03] LABS: Alanine Aminotransferase 36 U/L (0-31); Albumin Level 4.5 g/dL (3.5-5.0); Alkaline Phosphatase 97 U/L (39-117); Anion Gap 10 (12-20); Aspartate Amino Transferase 38 U/L (5-31); Blood Urea Nitrogen 18 mg/dL (9-16); Calcium 9.7 mg/dL (8.4-10.2); Carbon Dioxide 27 mmol/L (22-29); Chloride 108 mmol/L (96-108); Cholesterol 201 mg/dL (<200); Estimated Glomerular Filt Rate > 60; HDL Cholesterol 59 mg/dL (>40); Potassium 3.8 mmol/L (3.3-5.1); Sodium 141 mmol/L (135-145); Total Protein 7.6 g/dL (6.5-8.0); Triglycerides 70 mg/dL (<150)
[2025-02-08 15:21] LABS: Ferritin 202 ng/mL (10-250)
--- OUTSIDE RECORDS SUMMARY | 2025-02-08 18:05 | XMS_ITS | Clinical Summary ---
Author Organization [address] [facility] Address [address] [place] [address] Phone Care Team Providers Care Cargo Services Coordinator Name Role Phone Physician, Pcp Unknown Primary Care Provider Halley vailable Social History Tobacco Use Types Packs/Day Years Used Date Smoking Tobacco: Never Assessed Comments Unknown Sex and Gender Information Value Date Recorded Sex Assigned at Not on file Legal Sex Female 2:15 AM EST Gender Identity Not on file Sexual Orientation Not on file Plan of Treatment Health Maintenance Due Date Last Done Comments Breast Cancer Screening 1965 Colorectal Cancer Screening: Colonoscopy 1965 DTaP,Tdap,and Td Vaccines (1 - Tdap) 08/22/1983 Pneumococcal Vaccine: 50+ Ye ars (1 of 1 - PCV) 2014 Zoster Vaccines (1 of 2) 2014 Depression Screening 04/14/2024 HIV Screening 08/11/2024 Hepatitis C Screening 08/11/2024 Medicare Annual Wellness Visit 08/11/2024 Social Influencers of Health Screening 08/11/2024 COVID-19 Vaccine (1 - 2023-2 5 season) 2024 Influenza Vaccine (#1) 2024 Cervical Cancer Screening: HPV 08/09/2029 08/09/2024 [...] patient's age to complete this topic Hepatitis B Vaccines Aged Out No long er eligible [...] Procedure Name Priority Date/Time Associated Diagnosis Comments HPV WITH REFLEX GENOTYPE Routine 08/09/2024 12:00 AM EDT Encounter for screening for malignant neoplasm of cervix from Last 3 Months or Most Recently Relevant to Health Maintenance Results * HPV with reflex genotype (08/09/2024 12:00 AM EDT) HPV Negative Negative LAB MICROBIOLOGY METHOD 08/12/2024 1:12 PM EDT [facility] Brushing/Spatula Cervix uteri structure / Unknown 08/09/2024 08/11/2024 11:49 AM EDT us Julieth Blanco MD LAB MOLECULAR DIAGNOSTICS ORD ERABLES Final Result [facility] [address] [place] [address], from Last 3 Months or Most Recently Relevant to Health Maintenance Insurance MEDICAID - [place] [employer] MEDICARE Care Teams Cargo Services Coordinator Relationship Specialty Start Date End Date Physician, Pcp Unknown PCP - General 08/11/24
--- OUTSIDE RECORDS SUMMARY | 2025-02-08 18:05 | XMS_ITS | Encounter Summary ---
Author Organization [facility] Address [address] [place] [address] Care Team Providers Care Steam Meter Reader Name Role Phone Physician, Pcp Unknown Primary Care Provider Halley vailable Encounter Details Date Type Department Care Team (Late st Contact Info) Description 08/11/2024 Lab Requisition [facility] - Main Lab 299 [facility] [place] [address] Julieth Blanco MD [address] [place] [address] [place] [address] Encounter for screening for malignant neoplasm of [...] reflex genotype (08/09/2024 12:00 AM EDT) Pathologist [facility] HPV Negative Negative LAB MICROBIOLOGY METHOD 08/12/2024 1:12 PM EDT [facility] Brushing/Spatula Cervix uteri structure / Unknown 08/09/2024 08/11/2024 11:49 AM EDT us Julieth Blanco MD LAB MOLECULAR DIAGNOSTICS ORD ERABLES Final Result [facility] [address] [place] [address], [place] [phone] * Trichomonas vaginalis molecular study (08/09/2024 12:00 AM EDT) Trichomonas vaginalis Negative Negative LAB MICROBIOLOGY METHOD 08/12/2024 12:24 PM EDT [facility] Brushing/Spatula Cervix uteri structure / Unknown 08/09/2024 08/11/2024 11:49 AM EDT us Julieth Blanco MD LAB BLOOD ORDERABLES Final Re sult Performing Organization Address City/[facility]/ZIP Co de Phone Number [facility] [address] [place] [address], [place] [phone] * Chlamydia trachomatis and neisseria gonorrhoeae by tma, thinprep (08/09/2024 12:00 AM EDT) N. gonorrhoeae, RNA Probe Negative Negative LAB MICROBIOLOGY METHOD 08/12/2024 12:19 PM EDT [facility] Chlamydia, RNA Probe Negative Negative LAB MICROBIOLOGY METHOD 08/12/2024 12:19 PM EDT [facility] Brushing/Spatula Cervix uteri structure / Unknown 08/09/2024 08/11/2024 11:49 AM EDT us Julieth Blanco MD LAB CYTOLOGY ORDERABLES Final Result [facility] [address] [place] [address], [place] [phone] * Pap smear (08/09/2024 12:00 AM EDT) Interpretation Negative for intraepithelial lesion or malignancy 08/13/2024 7:58 AM EDT [facility] General Categorization Negative 08/13/2024 7:58 AM EDT [facility] Other Findings Atrophy 08/13/2024 7:58 AM EDT [facility] Specimen Adequacy Satisfactory for evaluation 08/13/2024 7:58 AM EDT [facility] Pap Methodology Liquid Based Pap Test 08/13/2024 7:58 AM EDT [facility] Disclaimer The Pap test is a screening test which carries an inherent false negative rate. These test results should be correlated with the patient's clinical findings and history. This Pap test was processed using an automated screening system. Technical cytopathology services provided by [facility], at [address] [place] [address] (CLIA # [id number]/Isabel Sims MD, Child Protective Services Social Worker.) 08/13/2024 7:58 AM EDT [facility] Console Pap Interpretation Reported 08/13/2024 7:58 AM EDT [facility] Brushing/Spatula Cervix uteri structure / Unknown 08/09/2024 08/11/2024 11:49 AM EDT us Julieth Blanco MD LAB CYTOLOGY ORDERABLES Final Result [facility] [address] [place] [address], [place] [phone] documented in this encounter Visit Diagnoses Diagnosis Encounter for screening for malignant neoplasm of cervix documented in this encounter Care Teams Steam Meter Reader Relationship Specialty Start Date End Date Physician, Pcp Unknown PCP - General 08/11/24 documented as of this encounter
== END 2025-02-08 13:51 | disposition home or self-care (01) ==
LOC: HO.LAB 13:50
PROVIDERS: PCP Internal Medicine; Visit Provider Internal Medicine
DX: G25.81 Restless legs syndrome (principal); I10 Essential (primary) hypertension; F17.201 Nicotine dependence, unspecified, in remission; Z68.28 Body mass index [BMI] 28.0-28.9, adult
CPT/HCPCS: 36415; 80053; 80061; 82728; 85025

== ENCOUNTER 2025-03-04 13:04 | Outpatient (REF) | payer MEDICARE, SELFPAY ==
--- NOTE | ~2025-03-04 | US_ITS ---
EXAMINATION: US RETROPERITONEAL LIMITED (RENAL ONLY) CLINICAL INFORMATION: N 20.0. Calculus of kidney.. COMPARISON: December 06, 2019. Correlated to CT abdomen pelvis with IV contrast dated August 16, 2024. TECHNIQUE: Real-time ultrasound kidneys using grayscale and color Doppler technique. FINDINGS: RIGHT KIDNEY: 10 x 6 x 6 cm (SAG x AP x TRV). Normal echotexture. Renal cortical thickness is normal. No hydronephrosis. No nephrolithiasis. No gross solid or cystic lesion. LEFT KIDNEY: 11 x 5 x 4 cm (SAG x AP x TRV). Normal echotexture. Renal cortical thickness is normal. No hydronephrosis. No gross nephrolithiasis. No solid or cystic lesion. US/US renal BI IMPRESSION: No hydronephrosis. No nephrolithiasis.. Electronically signed by: Oliver Driver MD 03/04/2025 01:39 PM EST
--- OUTSIDE RECORDS SUMMARY | 2025-03-04 13:25 | XMS_ITS | Clinical Summary ---
Author Organization [address] [facility] Address [address] [place] [address] Phone Care Team Providers Care Drill Operator Pneumatic Name Role Phone Physician, Pcp Unknown Primary [...] Health Screening 08/11/2024 COVID-19 Vaccine (1 - 2024-2 6 season) 2024 Influenza Vaccine (#1) 2024 Cervical [...] LAB MICROBIOLOGY METHOD 08/12/2024 1:12 PM EDT [facility] Brushing/Spatula Cervix uteri structure / Unknown 08/09/2024 08/11/2024 11:49 AM EDT us Julieth Blanco MD LAB MOLECULAR DIAGNOSTICS ORD ERABLES Final Result [facility] [address] [place] [address], from Last 3 Months or Most Recently Relevant to Health Maintenance Insurance MEDICAID - [place] [employer] MEDICARE Care Teams Drill Operator Pneumatic Relationship Specialty Start Date End Date Physician, Pcp Unknown PCP - General 08/11/24
--- OUTSIDE RECORDS SUMMARY | 2025-03-04 13:25 | XMS_ITS | Encounter Summary ---
Author Organization [facility] Address [address] [place] [address] Care Team Providers Care Office Systems Technology Instructor Name Role Phone Physician, Pcp Unknown Primary Care Provider Halley vailable Encounter Details Date Type Department Care Team (Late st Contact Info) Description 08/11/[address] [facility] - Main Lab 299 [facility] [place] [address] Julieth Blanco MD [address] [place] [address] [place] [address] Encounter for screening for malignant neoplasm of [...] genotype (08/09/2024 12:00 AM EDT) Pathologist [facility] HPV Negative Negative LAB MICROBIOLOGY METHOD 08/12/2024 1:12 PM EDT [facility] Brushing/Spatula Cervix uteri structure / Unknown 08/09/2024 08/11/2024 11:49 AM EDT us Julieth Blanco MD LAB MOLECULAR DIAGNOSTICS ORD ERABLES Final Result [facility] [address] [place] [address], [place] [phone] * Trichomonas vaginalis molecular study (08/09/2024 12:00 AM EDT) Trichomonas vaginalis Negative Negative LAB MICROBIOLOGY METHOD 08/12/2024 12:24 PM EDT [facility] Brushing/Spatula Cervix uteri structure / Unknown 08/09/2024 08/11/2024 11:49 AM EDT us Julieth Blanco MD LAB BLOOD ORDERABLES Final Re sult Performing Organization Address City/[facility]/ZIP Co de Phone Number [facility] [address] [place] [address], [place] [phone] * Chlamydia trachomatis and neisseria gonorrhoeae by tma, thinprep (08/09/2024 12:00 AM EDT) N. gonorrhoeae, RNA Probe Negative Negative LAB MICROBIOLOGY METHOD 08/12/2024 12:19 PM EDT [facility] Chlamydia, RNA Probe Negative Negative LAB MICROBIOLOGY METHOD 08/12/2024 12:19 PM EDT [facility] Brushing/Spatula Cervix uteri structure / Unknown 08/09/2024 08/11/2024 11:49 AM EDT us Julieth Blanco MD LAB CYTOLOGY ORDERABLES Final Result [facility] [address] [place] [address], [place] [phone] * Pap smear (08/09/2024 12:00 AM EDT) Interpretation Negative for intraepithelial lesion or malignancy 08/13/2024 7:58 AM EDT [facility] General Categorization Negative 08/13/2024 7:58 AM EDT [facility] Other Findings Atrophy 08/13/2024 7:58 AM EDT [facility] Specimen Adequacy Satisfactory for evaluation 08/13/2024 7:58 AM EDT [facility] Pap Methodology Liquid Based Pap Test 08/13/2024 7:58 AM EDT [facility] Disclaimer The Pap test is a screening test which carries an inherent false negative rate. These test results should be correlated with the patient's clinical findings and history. This Pap test was processed using an automated screening system. Technical cytopathology services provided by [facility], at [address] [place] [address] (CLIA # [id number]/Isabel Sims MD, Doll Repairer.) 08/13/2024 7:58 AM EDT [facility] Console Pap Interpretation Reported 08/13/2024 7:58 AM EDT [facility] Brushing/Spatula Cervix uteri structure / Unknown 08/09/2024 08/11/2024 11:49 AM EDT us Julieth Blanco MD LAB CYTOLOGY ORDERABLES Final Result [facility] [address] [place] [address], [place] [phone] documented in this encounter Visit Diagnoses Diagnosis Encounter for screening for malignant neoplasm of cervix documented in this encounter Care Teams Office Systems Technology Instructor Relationship Specialty Start Date End Date Physician, Pcp Unknown PCP - General 08/11/24 documented as of this encounter
== END 2025-03-04 13:05 | disposition home or self-care (01) ==
LOC: HO.HMGCX 13:04
PROVIDERS: PCP Internal Medicine; Visit Provider Nurse Practitioner Family
DX: N20.0 Calculus of kidney (principal)
CPT/HCPCS: 76775

== ENCOUNTER → 2025-03-04 13:05 | Outpatient (BNV) | payer MEDICARE, SELFPAY | PROVIDERS: PCP Internal Medicine; Visit Provider Radiology Diagnostic Radiology | DX: N20.0 Calculus of kidney (principal) | CPT/HCPCS: 76775 ==

== ENCOUNTER 2025-03-16 11:04 | Outpatient (AMB) | payer MEDICARE, SELFPAY ==
--- NOTE | 2025-03-16 11:08 | MHC.OFFVIS ---
Intake Visit Reasons: 6m/US/UA Intake Note: Patient is present for 6M/US/UA Urology Medication:NONE Antibiotic Allergy:NONE Blood Thinner:NONE Regulatory Specialist Required: No Allergies nut - unspecified (nut) Allergy (Mild, Verified 03/16/25 11:23) RASH/ITCHING FRUIT Allergy (Mild, Uncoded 03/16/25 11:23) RASH/ITCH/THROAT CLOSES apples, pears, bryson, peanut, Allergy (Unknown, Uncoded 03/16/25 11:23) Itching Medication List - Last Reconciled 03/16/25 by ANT Mahoney cyclobenzaprine 5 mg PO BEDTIME famotidine 40 mg PO BEDTIME gabapentin 300 mg PO BEDTIME loratadine 10 mg PO DAILY meclizine 12.5 mg PO QID PRN naproxen (EC-Naproxen) 500 mg PO BID HPI Comments Details: Danay is a pleasant 59-year-old female patient of Dr. Blanco. She has a past medical history of nephrolithiasis and carpal tunnel syndrome. She presents to the office today for follow-up of her nephrolithiasis. In discussion with the patient today she reports to be doing and feeling well. She denies having had any bothersome urinary issues or concerns since her last office visit here. Most recent renal imaging results reviewed with the patient today 03/08 bilateral kidneys with no hydronephrosis, nephrolithiasis, or lesions noted. She reports to be drinking plenty of water daily. She discusses her longstanding history of nephrolithiasis since 2018 and previously followed up with Dr. Chaney. She does report a previous surgical intervention for nephrolithiasis however does not recall exact procedure. She currently denies any bothersome urinary issues. She denies urinary urgency, urinary frequency, incontinence, nocturia, hematuria, dysuria, foul smelling urine, changes to urinary stream, flank pain, fever, and or chills. She is happy with her current voiding parameters. In office urinalysis results reviewed with the patient today trace microscopic hematuria noted. When asked she does report a previous history of nicotine dependence for approximately 20 years however quit 11 years ago. She discusses being told for many years she has had microscopic hematuria. We discussed at length potential causes of microscopic hematuria as well as further workup in risks and benefits of these interventions. All questions were answered. She otherwise offers no other issues or concerns at this time. 10/06 urine Cytology: Negative for high-grade urothelial carcinoma PFSH Medical History Bilateral carpal tunnel syndrome Kidney stones Carpal tunnel syndrome on left Surgical History Hx of tubal ligation H/O hemorrhoidectomy Hx of appendectomy H/O cystoscopy S/P nasal surgery Social History Alcohol intake: current Alcohol intake frequency: holidays/special occasions only Patient Tobacco Use Status: Never used Tobacco Current occupational status: employed Current occupation: [employer] de[employer] at [employer] Review of Systems Const All systems reviewed & are unremarkable except as noted in HPI and below Physical Exam Const General: cooperative, healthy appearing, comfortable, no acute distress, well developed, alert and awake Orientation/consciousness: patient oriented x3 Limitations: no limitations HEENT Head: Yes normal to inspection, Yes normocephalic and Yes atraumatic Ears: hearing grossly normal bilaterally Eyes General: appearance normal, both eyes and all related structures Neck Neck: Yes normal visual inspection and Yes trachea midline Chest Chest palpation & inspection: normal inspection of the chest Resp Effort & Inspection: normal respiratory effort and able to speak in complete sentences Cardio Rate: regular rate GI Inspection: Yes normal to inspection General: Yes no CVA tenderness Back/Spine/Pelvis Back: no CVA tenderness Skin General skin exam: no rashes or lesions noted Neuro General: patient oriented x3 Extrem General: Yes normal to inspection Psych Appearance: grossly normal and well kempt Mental Status: mental status grossly normal Speech and movement: Normal speech and movement present and Clear speech present Affect: normal affect Attitude: cooperative Thought process: Normal thought process present Thought content: Normal thought content present Insight: Fair insight present (Psych) Judgement: Fair judgement present (Psych) Results AMB Urinalysis, Automated UA Leukoctes 0 True/uL Last Edit by LEVY Mcgee on 03/16/25 11:22 UA Nitrite Negative Last Edit by LEVY Mcgee on 03/16/25 11:22 UA Urobilinogen 0.2 mg/dL Last Edit by LEVY Mcgee on 03/16/25 11:22 UA Protein 0 mg/dL Last Edit by LEVY Mcgee on 03/16/25 11:22 UA pH 6.0 Last Edit by LEVY Mcgee on 03/16/25 11:22 UA Blood 25 Mitchell/uL Last Edit by LEVY Mcgee on 03/16/25 11:22 UA Specific [place] 1.030 Last Edit by LEVY Mcgee on 03/16/25 11:22 UA Ketone Negative Last Edit by LEVY Mcgee on 03/16/25 11:22 UA Bilirubin 0 mg/dL Last Edit by LEVY Mcgee on 03/16/25 11:22 UA Glucose 0 mg/dL Last Edit by LEVY Mcgee on 03/16/25 11:22 Results Reviewed Results Reviewed: Laboratory Last Values Urine pH (Auto) 6.0 03/16/25 11:13 Specific [place] (Auto) 1.030 03/16/25 11:13 Urine Protein (Auto) 0 mg/dL 03/16/25 11:13 Glucose (UA)(Auto) 0 mg/dL 03/16/25 11:13 Urine Ketones (Auto) Negative 03/16/25 11:13 Urine Blood (Auto) 25 Mitchell/uL 03/16/25 11:13 Urine Nitrite (Auto) Negative 03/16/25 11:13 Urine Bilirubin (Auto) 0 mg/dL 03/16/25 11:13 Urine Urobilinogen (Auto) 0.2 mg/dL 03/16/25 11:13 Leukocyte Esterase (Auto) 0 True/uL 03/16/25 11:13 Date of Service: 03/04/25 Procedure(s): US renal BI FINDINGS: RIGHT KIDNEY: 10 x 6 x 6 cm (SAG x AP x TRV). Normal echotexture. Renal cortical thickness is normal. No hydronephrosis. No nephrolithiasis. No gross solid or cystic lesion. LEFT KIDNEY: 11 x 5 x 4 cm (SAG x AP x TRV). Normal echotexture. Renal cortical thickness is normal. No hydronephrosis. No gross nephrolithiasis. No solid or cystic lesion. IMPRESSION: No hydronephrosis. No nephrolithiasis.. Assessment & Plan Assessment & Plan (1) Kidney stones: Code(s): N20.0 - Calculus of kidney Category: Medical (2) Microscopic hematuria: Code(s): R31.29 - Other microscopic hematuria Category: Medical (3) History of nicotine dependence: Code(s): Z87.891 - Personal history of nicotine dependence Category: Medical Plan In office urinalysis results with the patient today; as noted above; will send for urine cytology. We did discussed at length potential causes of history of nephrolithiasis as well as microscopic hematuria; we also discussed further treatment options and risks and benefits of these treatment options. All questions were answered. She currently denies any bothersome urinary issues or concerns. She reports be happy with current voiding parameters. Will continue with surveillance monitoring at this time. Previous urine cytology results reviewed with the patient today; as noted above. We discussed the importance of continuing with adequate hydration relation to nephrolithiasis. Continue adding 1 oz of lemon juice to water daily. Will obtain renal ultrasound in 1 year. Follow-up in 1 year with imaging; or sooner with any issues, concerns, and or questions. Orders: Orders Urine Cytology Today R31.29 - Other microscopic hematuria AMB Urinalysis Automated Today Z13.9 - Encounter for screening, unspecified US retroperitoneal comp Today N20.0 - Calculus of kidney, R31.29 - Other microscopic hematuria, Z87.891 - Personal history of nicotine dependence Patient Instructions: The patient had an opportunity to ask questions regarding the treatment plan. All questions were answered. Physical exam, labs, and imaging were discussed and reviewed in detail. As well as risks, benefits, and discussion of treatment choices. No major barriers to understanding were identified. The patient expressed understanding and agreement with the above treatment plan. The patient was made aware they should contact our office by phone for worsening of their current condition, the appearance of new symptoms, or with any questions or concerns. Compliance is encouraged with any medications and follow up testing that is ordered. It is a privilege to be allowed the opportunity to participate in? your urological care.? Again, if you have any questions or concerns If you have any questions or concerns please do not hesitate to contact me. The office is [phone]. This note is constructed using voice recognition software. While every effort has been made to ensure accuracy refrigeration manager errors may have been included. Yours sincerely, SALMA Mahoney-BC Coding Level of Care Code Est Pt Level 3 (21451) Diagnoses Kidney stones N20.0 Microscopic hematuria R31.29 History of nicotine dependence Z87.891
--- OUTSIDE RECORDS SUMMARY | 2025-03-16 13:11 | XMS_ITS | Clinical Summary ---
Author Organization [facility] Address [address] [place] [address] Phone Care Team Providers Care Linotype Operator Name Role Phone Physician, Pcp Unknown Primary [...] Result [facility] [address] [place] [address], from Last 3 Months or Most Recently Relevant to Health Maintenance Insurance MEDICAID - [place] [employer] MEDICARE Care Teams Linotype Operator Relationship Specialty Start Date End Date Physician, Pcp Unknown PCP - General 08/11/24
--- OUTSIDE RECORDS SUMMARY | 2025-03-16 13:11 | XMS_ITS | Encounter Summary ---
Author Organization [facility] Address [address] [place] [address] Care Team Providers Care Field Care Advocate Name Role Phone Physician, Pcp Unknown Primary Care Provider Halley vailable Encounter Details Date Type Department Care Team (Late st Contact Info) Description 08/11/2024 Lab Requisition [facility] Lab [address] [facility] [place] [address] Julieth Blanco MD [address] [place] [address] [place] [address] Encounter for screening for malignant neoplasm of [...] reflex genotype (08/09/2024 12:00 AM EDT) Pathologist [facility] HPV Negative Negative LAB MICROBIOLOGY METHOD 08/12/2024 1:12 PM EDT [facility] Brushing/Spatula Cervix uteri structure / Unknown 08/09/2024 08/11/2024 11:49 AM EDT us Julieth Blanco MD LAB MOLECULAR DIAGNOSTICS ORD ERABLES Final Result [facility] [address] [place] [address], [place] [phone] * Trichomonas vaginalis molecular study (08/09/2024 12:00 AM EDT) Trichomonas vaginalis Negative Negative LAB MICROBIOLOGY METHOD 08/12/2024 12:24 PM EDT [facility] Brushing/Spatula Cervix uteri structure / Unknown 08/09/2024 08/11/2024 11:49 AM EDT us Julieth Blanco MD LAB BLOOD ORDERABLES Final Re sult Performing Organization Address City/[facility]/ZIP Co de Phone Number [facility] [address] [place] [address], [place] [phone] * Chlamydia trachomatis and neisseria gonorrhoeae by tma, thinprep (08/09/2024 12:00 AM EDT) N. gonorrhoeae, RNA Probe Negative Negative LAB MICROBIOLOGY METHOD 08/12/2024 12:19 PM EDT [facility] Chlamydia, RNA Probe Negative Negative LAB MICROBIOLOGY METHOD 08/12/2024 12:19 PM EDT [facility] Brushing/Spatula Cervix uteri structure / Unknown 08/09/2024 08/11/2024 11:49 AM EDT us Julieth Blanco MD LAB CYTOLOGY ORDERABLES Final Result [facility] [address] [place] [address], [place] [phone] * Pap smear (08/09/2024 12:00 AM EDT) Interpretation Negative for intraepithelial lesion or malignancy 08/13/2024 7:58 AM EDT [facility] at 0758 EDT General Categorization Negative 08/13/2024 7:58 AM EDT [facility] Other Findings Atrophy 08/13/2024 7:58 AM EDT [facility] Specimen Adequacy Satisfactory for evaluation 08/13/2024 7:58 AM EDT [facility] Pap Methodology Liquid Based Pap Test 08/13/2024 7:58 AM EDT [facility] Disclaimer The Pap test is a screening test which carries an inherent false negative rate. These test results should be correlated with the patient's clinical findings and history. This Pap test was processed using an automated screening system. Technical cytopathology services provided by [facility], at [address] [place] [id number] (CLIA # [id number]/Isabel Sims MD, Website Programmer.) 08/13/2024 7:58 AM EDT [facility] Console Pap Interpretation Reported 08/13/2024 7:58 AM EDT [facility] Brushing/Spatula Cervix uteri structure / Unknown 08/09/2024 08/11/2024 11:49 AM EDT us Julieth Blanco MD LAB CYTOLOGY ORDERABLES Final Result [facility] [address] [place] [address], [place] [phone] documented in this encounter Visit Diagnoses Diagnosis Encounter for screening for malignant neoplasm of cervix documented in this encounter Care Teams Field Care Advocate Relationship Specialty Start Date End Date Physician, Pcp Unknown PCP - General 08/11/24 documented as of this encounter
== END 2025-03-16 11:37 | disposition home or self-care (01) ==
LOC: HO.HUSH 11:05
PROVIDERS: PCP Internal Medicine; Visit Provider Nurse Practitioner Family
DX: N20.0 Calculus of kidney (principal); R31.29 Other microscopic hematuria; Z87.891 Personal history of nicotine dependence; Z13.9 Encounter for screening, unspecified
CPT/HCPCS: 99213

== ENCOUNTER 2025-03-16 11:04 | Outpatient (REF) | payer MEDICARE, SELFPAY | END 2025-03-16 11:05 | disposition home or self-care (01) | LOC: HO.LAB 11:04 | PROVIDERS: PCP Internal Medicine; Visit Provider Nurse Practitioner Family | DX: N20.0 Calculus of kidney (principal); R31.29 Other microscopic hematuria; Z87.891 Personal history of nicotine dependence | CPT/HCPCS: 81003; 88112; 99212 ==